=== PATIENT | male | born 1975 | race Caucasian/White ===

== ENCOUNTER 2021-09-06 15:26 | Emergency (ER) | payer BC ==
[2021-09-06 17:24] LABS: Absolute Lymphocytes (CBC) 2.3 K/uL (0.7-4.9); Basophils % 0.9 % (0-1.3); Hematocrit 53.1 % (39.6-49.0); Lymphocytes % 33.2 % (15.3-44.8); MPV 7.4 fL (7.6-11.3); RBC Red Blood Cell Count 5.93 M/uL (4.33-5.43)
[2021-09-06 17:30] LABS: Protime INR 0.95
[2021-09-06 17:44] LABS: ALT/SGPT 37 U/L (12-78); AST/SGOT 13 U/L (15-37); Albumin 4.2 g/dL (3.4-5.0); Alkaline Phosphatase 100 U/L (45-117); BUN Blood Urea Nitrogen 21 mg/dL (7-18); Bicarbonate 25 mmol/L (21-32); Bilirubin Direct 0.1 mg/dL (0-0.2); Bilirubin Total 0.5 mg/dL (0.2-1.0); Glucose Level 135 mg/dL (74-106); Magnesium 2.4 mg/dL (1.8-2.4); NT PRO-BNP 13 pg/mL (<125); Potassium 3.8 mmol/L (3.5-5.1); Sodium Level 140 mmol/L (136-145); Troponin (Emerg Dept Use Only) < 0.02 ng/mL (0.0-0.045)
[2021-09-06] MEDS ORDERED: MECLIZINE HCL 12.5 MG TAB ONE (18:03)
--- NOTE | 2021-09-06 18:41 | RAD REPORT ---
EXAM DESCRIPTION: CT - Head Brain Wo Cont - 09/06/2021 5:57 pm CLINICAL HISTORY: DIZZINESS COMPARISON: <Comparisons> TECHNIQUE: Axial 5 mm thick images of the head were obtained without IV contrast. All CT scans are performed using dose optimization technique as appropriate and may include automated exposure control or mA/KV adjustment according to patient size. FINDINGS: No intracranial hemorrhage, mass, edema or shift of mid-line structures. No acute infarcti on changes seen. No abnormal extra-axial fluid collections. Ventricles are normal. Mastoid air cells and visualized portions of the paranasal sinuses are clear. No acute bony findings. IMPRESSION: Negative non-contrast CT head examination.
--- NOTE | 2021-09-06 18:52 | RAD REPORT ---
EXAM DESCRIPTION: RAD - Chest Single View - 09/06/2021 5:58 pm CLINICAL HISTORY: CHEST PAIN COMPARISON: Two view chest September 2009 TECHNIQUE: AP portable chest image was obtained 09/06/2021 5:58 pm . FINDINGS: Lungs are clear. Heart and vasculature are normal. No measurable pleural effusion and no p neumothorax. No acute bony abnormality seen. No acute aortic findings suspected. IMPRESSION: No acute cardiopulmonary process.
--- NOTE | 2021-09-06 20:04 | ER ---
Nurse's Notes [facility] Name: Ramiro Naylor Age: 45 yrs Sex: Male : 1975 Arrival Date: 09/06/2021 Time: 15:30 Bed Treatment Private MD: Diagnosis: Dizziness and giddiness;Chest Pain Presentation: 09/06 16:03 Chief complaint: Patient states: episodes of dizziness, headache, and right-sided chest aa5 pain that began 1 week ago. 16:03 Acuity: CY 3 aa5 16:03 Coronavirus screen: At this time, the client does not indicate any symptoms associated aa5 with coronavirus-19. Ebola Screen: No symptoms or risks identified at this time. Initial Sepsis Screen: Does the patient meet any 2 criteria? No. Patient's initial sepsis screen is negative. Does the patient have a suspected source of infection? No. Patient's initial sepsis screen is negative. Risk Assessment: Do you want to hurt yourself or someone else? Patient reports no desire to harm self or others. Onset of symptoms was August 2021. 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 - Social history:: Smoking status: Patient reports the use of cigarette tobacco products, smokes one pack cigarettes per day. Screenin:58 Abuse screen: Denies threats or abuse. Denies injuries from another. Nutritional ld1 screening: No deficits noted. Tuberculosis screening: No symptoms or risk factors identified. Fall Risk None identified. Assessment: 16:58 General: Appears in no apparent distress. comfortable, Behavior is calm, cooperative, ld1 appropriate for age. Pain: Complains of pain in anterior aspect of right upper chest Pain does not radiate. Pain currently is 0 out of 10 on a pain scale. at worst was 6 out of 10 on a pain scale. Quality of pain is described as Pain began suddenly, Is intermittent. Neuro: Level of Consciousness is awake, alert, obeys commands, Oriented to person, place, time, situation, Appropriate for age. Cardiovascular: Capillary refill < 3 seconds Patient's skin is warm and dry. Rhythm is regular. Respiratory: Airway is patent Respiratory effort is even, unlabored, Respiratory pattern is regular, symmetrical. GI: Abdomen is round non-distended. : No signs and/or symptoms were reported regarding the genitourinary system. EENT: No signs and/or symptoms were reported regarding the EENT system. Derm: No signs and/or symptoms reported regarding the dermatologic system. Musculoskeletal: Reports pain in chest. 20:00 Reassessment: Patient and/or family updated on plan of care and expected duration. Pain fu level reassessed. Patient is alert, oriented x 3, equal unlabored respirations, skin warm/dry/pink. denies chest pain, dizziness subsided. Vital Signs: 16:03 BP 139 / 96; Pulse 79; Resp 18 S; Temp 97.2(TE); Pulse Ox 100% on R/A; Weight 117.93 kg aa5 (R); Height 6 ft. 2 in. (187.96 cm) (R); 16:58 BP 136 / 94; Pulse 78; Resp 18; Pulse Ox 98% on R/A; Pain 0/10; ld1 18:30 BP 142 / 90; Pulse 82; Resp 18; Pulse Ox 99% on R/A; ld1 16:03 Body Mass Index 33.38 (117.93 kg, 187.96 cm) aa5 ED Course: 15:30 Patient arrived in ED. ds1 16:03 Arm band placed on. aa5 16:07 Triage completed. aa5 16:13 EKG completed in triage. Results shown to MD. aa5 16:57 iGll Mcgrath, RN is Primary Nurse. ld1 16:58 Patient has correct armband on for positive identification. library monitor on. Pulse ld1 ox on. NIBP on. Door closed. Noise minimized. Warm blanket given. 16:58 No provider procedures requiring assistance completed. Patient maintains SpO2 ld1 saturation greater than 95% on room air. 17:07 Ede Mena PA is PHCP. [facility] 17:07 Erickson Patterson MD is Attending Physician. m 17:17 Inserted saline lock: 20 gauge in left hand, using aseptic technique. Blood collected. ld1 17:56 CT Head Brain wo Cont In Process Unspecified. EDMS 17:58 XRAY Chest (1 view) In Process Unspecified. EDMS 20:20 IV discontinued, bleeding controlled, Pressure dressing applied. fu Administered Medications: 18:06 Drug: Meclizine 50 mg Route: PO; ld1 18:06 Follow up: Response: No adverse reaction ld1 Point of Care Testing: Blood Glucose: 16:09 Blood Glucose: 159 mg/dL; aa5 Ranges: Outcome: 20:03 Discharge ordered by . madeleine 20:20 Discharged to home ambulatory, with family. fu 20:20 Condition: good 20:20 Discharge instructions given to patient, Instructed on discharge instructions, follow up and referral plans. Demonstrated understanding of instructions, follow-up care, Prescriptions given X 1. 20:20 Patient left the ED. fu Signatures: Dispatcher [employer] EDMS Ede Mena PA PA jmm Sanford, Demi ds1 Carmita Cochran, RN RN aa5 Juan Luis Armas RN RN fu Gill Mcgrath RN RN ld1
--- NOTE | 2021-09-06 20:04 | EDPHYS ---
Physician Documentation [facility] Name: Ramiro Elder Age: 45 yrs Sex: Male : 1975 Arrival Date: 09/06/2021 Time: 15:30 Bed Treatment Private MD: ED Physician Erickson Patterson HPI: 09/06 17:46 This 45 yrs old Male presents to ER via Ambulatory with complaints of Chest jm Pain, Dizziness. 17:46 The patient or guardian reports chest pain that is located primarily in the substernal [facility] area. Onset: acutely, today. The pain does not radiate. Associated signs and symptoms: Pertinent positives: headache, Pertinent negatives: shortness of breath. This is a 45-year-old male with history of diabetes mellitus, hypertension the presents emerged part with complaints of acute onset dizziness while driving. Patient states this lasted for few minutes. Patient states he soon developed some right-sided chest pain that he described as pressure. This lasted for approximate 5 to 10 minutes. Patient states having a similar episodes of chest pain earlier in the morning.. 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 - Social history:: Smoking status: Patient reports the use of cigarette tobacco products, smokes one pack cigarettes per day. ROS: 17:46 Constitutional: Negative for fever, chills, and weight loss. jmm 17:46 Cardiovascular: Positive for chest pain. 17:46 Neuro: Positive for dizziness. 17:46 All other systems are negative. Exam: 17:46 Constitutional: This is a well developed, well nourished patient who is awake, alert, jmm and in no acute distress. Head/Face: atraumatic. Eyes: EOMI, no conjunctival erythema appreciated ENT: Moist Mucus Membranes Neck: Trachea midline, Supple Chest/axilla: Normal chest wall appearance and motion. Cardiovascular: Regular rate and rhythm. No edema appreciated Respiratory: Normal respirations, no respiratory distress appreciated Abdomen/GI: Non distended, soft Back: Normal ROM 17:46 Skin: Appearance: Color: normal in color. 17:46 Neuro: Orientation: is normal, Mentation: is normal, Memory: is normal, Cerebellar function: normal finger to nose testing. 17:46 Psych: Behavior/mood is pleasant, cooperative. Vital Signs: 16:03 BP 139 / 96; Pulse 79; Resp 18 S; Temp 97.2(TE); Pulse Ox 100% on R/A; Weight 117.93 kg aa5 (R); Height 6 ft. 2 in. (187.96 cm) (R); 16:58 BP 136 / 94; Pulse 78; Resp 18; Pulse Ox 98% on R/A; Pain 0/10; ld1 18:30 BP 142 / 90; Pulse 82; Resp 18; Pulse Ox 99% on R/A; ld1 16:03 Body Mass Index 33.38 (117.93 kg, 187.96 cm) aa5 MDM: 17:45 Patient medically screened. [facility] 20:02 Data reviewed: vital signs, nurses notes. Counseling: I had a detailed discussion with madeleine the patient and/or guardian regarding: the historical points, exam findings, and any diagnostic results supporting the discharge/admit diagnosis, lab results, radiology results, the need for outpatient follow up, to return to the emergency department if symptoms worsen or persist or if there are any questions or concerns that arise at home. ED course: I discussed the patient with Dr. Gardner whom will follow up with the patient tomorrow for reevaluation. Patient understood and agrees with the plan of care. . 09/06 16:21 Order name: Glucose, Ancillary Testing; Complete Time: 17:45 EDVT 09/06 16:58 Order name: Basic Metabolic Panel; Complete Time: 17:45 ld1 09/06 16:58 Order name: CBC with Diff; Complete Time: 17:45 ld1 09/06 16:58 Order name: LFT's; Complete Time: 17:45 ld1 09/06 16:58 Order name: Magnesium; Complete Time: 17:45 ld1 09/06 16:58 Order name: NT PRO-BNP; Complete Time: 17:45 ld1 09/06 16:58 Order name: PT-INR; Complete Time: 17:45 ld1 09/06 16:58 Order name: Troponin (emerg Dept Use Only); Complete Time: 17:45 ld1 09/06 16:58 Order name: XRAY Chest (1 view); Complete Time: 18:54 ld1 09/06 16:58 Order name: EKG; Complete Time: 16:59 ld1 09/06 16:58 Order name: Cardiac monitoring; Complete Time: 16:58 ld1 09/06 16:58 Order name: EKG - Nurse/Tech; Complete Time: 16:58 ld1 09/06 17:49 Order name: CT Head Brain wo Cont; Complete Time: 18:54 [facility] 09/06 16:58 Order name: IV Saline Lock; Complete Time: 17:17 ld1 09/06 16:58 Order name: Labs collected and sent; Complete Time: 17:17 ld1 09/06 16:58 Order name: O2 Per Protocol; Complete Time: 16:58 ld1 09/06 16:58 Order name: O2 Sat Monitoring; Complete Time: 16:58 ld1 Administered Medications: 18:06 Drug: Meclizine 50 mg Route: PO; ld1 18:06 Follow up: Response: No adverse reaction ld1 Point of Care Testing: Blood Glucose: 16:09 Blood Glucose: 159 mg/dL; aa5 Ranges: Critical Glucose Levels:Adult <50 mg/dl or >400 mg/dl <40 mg/dl or >180 mg/dl Disposition Summary: 09/06/21 20:03 Discharge Ordered Location: Home [facility] Condition: Stable [facility] Diagnosis - Dizziness and giddiness jmm - Chest Pain [facility] Followup: jm - With: Private Physician - When: 2 - 3 days - Reason: Recheck today's complaints, Continuance of care, Re-evaluation by your physician Discharge Instructions: - Discharge Summary Sheet jmm - Benign Positional Vertigo jmm - Nonspecific Chest Pain, Adult jmm - Dizziness [facility] Forms: - Medication Reconciliation Form [facility] - Thank You Letter jm - Antibiotic Education jmm - Prescription Opioid Use [facility] Prescriptions: - Meclizine 25 mg Oral Tablet - take 1 tablet by ORAL route every 8 hours As needed; 30 tablet; Refills: 0, [facility] Product Selection Permitted Addendum: 09/09/2021 19:06 Co-signature as Attending Physician, Erickson romero Signatures: Dispatcher [employer] EDErickson Jerome MD MD pkl Mickail, Joel, PA PA jmm Calderon, Audri RN RN aa5 Dibbern, Gill, RN RN ld1
[2021-09-06 21:02] VITALS: TEMP 97.2
[2021-09-06 21:10] VITALS: BP 142/90; O2SAT 99
--- NOTE | 2021-09-07 11:21 | EKG ---
Test Date: 2021-09-06 Test Time: 16:11:38 Title I Instructional Assistant: LL MEASUREMENT RESULTS: Intervals: Rate: 72 CT: 174 QRSD: 94 QT: 382 QTc: 418 [place]: P: 65 CT: 174 QRS: 30 T: 65 INTERPRETIVE STATEMENTS: Normal sinus rhythm Nonspecific ST abnormality Abnormal ECG No previous ECG available for comparison Electronically Signed On 09-07-21 11:20:15 PUBLIC HEALTH DIRECTOR by Gavin Blackburn
== END 2021-09-06 20:20 | disposition home or self-care (01) ==
LOC: ER 15:26
DX: R07.9 Chest pain, unspecified (principal); R42 Dizziness and giddiness; F17.210 Nicotine dependence, cigarettes, uncomplicated
CPT/HCPCS: 36415; 70450; 71045; 80048; 80076; 82947; 83735; 83880; 84484; 85025; 85610; 93005; 99285

== ENCOUNTER 2022-04-11 14:46 | Emergency (ER) | payer BC ==
--- OUTSIDE RECORDS SUMMARY | 2022-04-11 14:49 | XMS REPORT | Continuity of Care Document ---
:1975 Author Organization [facility] Address [address] [place] [address] Dr. Perez [address] [place] [id number] Care Team Providers Name Role Phone SIMONE Attending Clinician Unavailable Payers Payer Name Policy Type Policy Number Effective Date Expiration Date Shanell hanks [employer] [id number] 2019 [facility] 00:00:00 Problems This patient has no known problems. Allergies, Adverse Reactions, Alerts This patient has no known allergies or adverse reactions. Medications This patient has no known medications. Procedures This patient has no known procedures. Encounters Start End Encounter Admission Attending Care Care Encounter Source Date/Time Date/Time Type Type Clinicians Facility Department ID 2022-04-07 Outpatient SIMONE [facility] [id number] [place] 09:42:31 [place] [id number] Health Results This patient has no known results.
[2022-04-11 16:16] LABS: Absolute Lymphocytes (CBC) 2.1 K/uL (0.7-4.9); Hematocrit 49.6 % (39.6-49.0); Lymphocytes % 29.6 % (15.3-44.8); MPV 7.4 fL (7.6-11.3); RBC Red Blood Cell Count 5.59 M/uL (4.33-5.43)
--- NOTE | 2022-04-11 16:40 | RAD REPORT ---
EXAM DESCRIPTION: USExtremity Venous Uni Ltd04/11/2022 4:25 pm CLINICAL HISTORY: left leg pain and swelling. COMPARISON: April 04, 2022 FINDINGS: Left common femoral, superficial femoral,veins are compressible and demonstrate augmentati on. Doppler demonstrates good flow. Echogenic material consistent with thrombus is present within left popliteal vein extending into left posterior tibial vein. Vein is partially compressible Grayscale, color and spectral analysis performed on all vessels IMPRESSION: Acute thrombus within left popliteal and left posterior tibial veins
[2022-04-11 16:47] LABS: ALT/SGPT 28 U/L (12-78); AST/SGOT 20 U/L (15-37); Albumin 3.8 g/dL (3.4-5.0); Alkaline Phosphatase 82 U/L (45-117); BUN Blood Urea Nitrogen 20 mg/dL (7-18); Bicarbonate 23 mmol/L (21-32); Bilirubin Total 0.3 mg/dL (0.2-1.0); Glomerular Filtration Rate 108 ml/min (=/>90); Glucose Level 190 mg/dL (74-106); Magnesium 2.2 mg/dL (1.8-2.4); NT PRO-BNP 66 pg/mL (<125); Potassium 3.9 mmol/L (3.5-5.1); Protein, Total 7.6 g/dL (6.4-8.2); Sodium Level 138 mmol/L (136-145); Troponin High Sensitivity 5.1 pg/mL (<58.9)
[2022-04-11 16:49] LABS: Bilirubin Direct < 0.1 mg/dL (0-0.2)
--- NOTE | 2022-04-11 18:42 | RAD REPORT ---
EXAM DESCRIPTION: US - Lower Extremity Artery Uni Ltd - 04/11/2022 6:18 pm CLINICAL HISTORY: Leg swelling COMPARISON: None FINDINGS: Left common femoral and left superficial femoral arteries demonstrate triphasic waveforms. Flow is not visualized within the left popliteal artery. Minimal flow within the left posterior tibial artery. Grayscale, color and spectral analysis performed on all vessels IMPRESSION: Occlusion of the left popliteal artery
--- NOTE | 2022-04-11 19:07 | ER ---
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 Patient denies trauma to the leg. Patient states he had an ultrasound on the leg last week, which was negative. Patient states he also had an MRI recently and was informed it is possibly a strained muscle. Coronavirus screen: At this time, the client does not indicate any symptoms associated with coronavirus-19. Ebola Screen: No symptoms or risks identified at this time. Initial Sepsis Screen: Does the patient meet any 2 criteria? No. Patient's initial sepsis screen is negative. Does the patient have a suspected source of infection? No. Patient's initial sepsis screen is negative. Risk Assessment: Do you want to hurt yourself or someone else? Patient reports no desire to harm self or others. Onset of symptoms was March 29, 2022. 15:02 Method Of Arrival: Wheelchair ap3 15:02 Acuity: CY 3 ap3 Triage Assessment: 15:07 General: Appears uncomfortable, Behavior is calm, cooperative, appropriate for age. ap3 Pain: Complains of pain in left leg Pain began gradually, over the last few weeks. Neuro: Level of Consciousness is awake, alert, obeys commands, Oriented to person, place, time, situation, Appropriate for age Speech is normal. Cardiovascular: Patient's skin is warm and dry. Respiratory: Airway is patent Respiratory effort is even, unlabored, Respiratory pattern is regular, symmetrical. Derm: Skin is red, on the left lower extrimity. Historical: - Allergies: 15:05 No Known Allergies; ap3 - Home Meds: 15:05 losartan oral [Active]; Synjardy oral [Active]; ap3 - PMHx: 15:05 diabetes mellitus; Hypertensive disorder; seven syndrome; ap3 - Immunization history:: Client reports receiving the 2nd dose of the Covid vaccine. - Social history:: Smoking status: Patient reports the use of cigarette tobacco products, smokes one pack cigarettes per day. Screenin:08 Abuse screen: Denies threats or abuse. Nutritional screening: No deficits noted. ap3 Tuberculosis screening: No symptoms or risk factors identified. 15:30 Fall Risk No fall in past 12 months (0 pts). No secondary diagnosis (0 pts). IV access vg1 (20 points). Ambulatory Aid- None/Bed Rest/Nurse Assist (0 pts). Gait- Impaired (20 pts.). Mental Status- Oriented to own ability (0 pts). Total Stewart Fall Scale indicates Low Risk Score (25-44 pts). Fall prevention measures have been instituted. Side Rails Up X 2 Placed close to Nursing Station Family Present and informed to notify staff if they need to leave bedside As available Patient and Family Educated on Fall Prevention Program and strategies. Assessment: 15:30 General: Appears uncomfortable, Behavior is calm, cooperative. Pain: Complains of pain vg1 in left foot and left leg Pain currently is 10 out of 10 on a pain scale. Pain began x 1 week. Neuro: Haines Agitation-Sedation Scale (RASS): 0 - Alert and Calm Level of Consciousness is awake, alert, obeys commands, Oriented to person, place, time, situation. Cardiovascular: Capillary refill is > 3 seconds in left toes. Respiratory: Airway is patent Respiratory effort is even, unlabored. GI: No signs and/or symptoms were reported involving the gastrointestinal system. : No signs and/or symptoms were reported regarding the genitourinary system. EENT: No signs and/or symptoms were reported regarding the EENT system. Derm: Skin is red, Skin temperature is cold to left lower extremity and left foot; Left big toe appears to be purple in color. Musculoskeletal: Swelling present in left lower extremity and left foot. 16:59 Reassessment: Patient appears in no apparent distress at this time. Patient and/or vg1 family updated on plan of care and expected duration. Pain level reassessed. Patient is alert, oriented x 3, equal unlabored respirations, skin warm/dry/pink. 18:00 Reassessment: Patient appears in no apparent distress at this time. No changes from vg1 previously documented assessment. Patient and/or family updated on plan of care and expected duration. Pain level reassessed. Patient is alert, oriented x 3, equal unlabored respirations, skin warm/dry/pink. 22:19 Reassessment: Patient and/or family updated on plan of care and expected duration. Pain kd3 level reassessed. Patient is alert, oriented x 3, equal unlabored respirations, skin warm/dry/pink. Patient states feeling better. Patient states symptoms have improved. 04/12 01:25 Reassessment: pt heparin drip adjusted per protocol. now running at 34ml/hr 1700 units kd3 per hour. Vital Signs: 04/11 15:02 BP 163 / 95; Pulse 87; Resp 17; Temp 98.2; Pulse Ox 99% ; Weight 117.48 kg; Height 6 ap3 ft. 2 in. (187.96 cm); 16:59 BP 157 / 93; Pulse 73; Resp 16; Pulse Ox 99% ; vg1 17:45 BP 138 / 83; Pulse 79; Resp 16; Pulse Ox 99% on R/A; vg1 22:19 BP 157 / 89; Pulse 71; Resp 20; Pulse Ox 95% on R/A; kd3 23:27 BP 169 / 75; Pulse 76; Resp 18; Pulse Ox 100% on R/A; kd3 04/12 00:21 BP 169 / 75; Pulse 19; Resp 77; Pulse Ox 100% on R/A; kd3 02:55 BP 147 / 80; Pulse 73; Resp 19; Pulse Ox 99% ; kd3 04/11 15:02 Body Mass Index 33.25 (117.48 kg, 187.96 cm) ap3 ED Course: 04/11 14:49 Patient arrived in ED. mr 14:49 Corey Gardner MD is Private Physician. mr 14:52 Fernando Adorno PA is PHCP. cp 14:52 Reynaldo Broderick MD is Attending Physician. cp 15:05 Triage completed. ap3 15:08 Arm band placed on right wrist. ap3 15:26 Coleen Espinal, ASHKAN is Primary Nurse. vg1 15:30 Patient has correct armband on for positive identification. Bed in low position. Call vg1 light in reach. Side rails up X2. Adult w/ patient. 15:30 No provider procedures requiring assistance completed. vg1 15:55 Initial lab(s) drawn, by me, sent to lab. Inserted saline lock: 20 gauge in right vg1 wrist, using aseptic technique. Blood collected. 15:55 First set of blood cultures drawn by me. vg1 16:27 US Extremity Venous Unilateral Ltd In Process Unspecified. EDMS 18:20 US LE Artery Uni Ltd In Process Unspecified. EDMS 18:50 initiated transfer to [facility]. bd 20:24 Inserted saline lock: 20 gauge in left antecubital area, using aseptic technique. vc1 21:24 Pt accepted for transfer by Dr. Ramirez Agrawal. 04/12 03:41 Patient transferred, IV remains in place. kd3 Administered Medications: 04/11 16:25 Drug: morphine 4 mg Route: IVP; Infused Over: 4 mins; Site: right wrist; vg1 16:58 Follow up: Response: No adverse reaction; Marked relief of symptoms vg1 22:21 Follow up: Response: No adverse reaction; Pain is decreased kd3 19:54 Drug: Heparin (DVT/PE- Bolus per protocol) - HEParin 80 units/kg {Co-Signature: lg3 kd3 (Kimberlee Hendricks RN).} Route: IVP; Site: right forearm; 22:21 Follow up: Response: No adverse reaction kd3 19:55 Drug: Heparin (DVT/PE Drip) 18 units/kg/hr - (HEParin 07252 units, D5W 500 ml) kd3 {Co-Signature: lg3 (Kimberlee Hendricks RN).} Route: IV; Rate: calculated rate; Site: right forearm; 22:21 Follow up: IV Status: Infusion continued kd3 20:41 Drug: morphine 4 mg Route: IVP; Infused Over: 4 mins; Site: left antecubital; vc1 22:21 Follow up: Response: No adverse reaction; Pain is decreased kd3 20:41 Drug: Zofran (Ondansetron) 4 mg Route: IVP; Site: left antecubital; vc1 22:20 Follow up: Response: No adverse reaction; Nausea is decreased kd3 21:42 Drug: Dilaudid (HYDROmorphone) 1 mg Route: IVP; Site: left antecubital; kd3 22:20 Follow up: Response: No adverse reaction; Pain is decreased kd3 22:53 Drug: Dilaudid (HYDROmorphone) 0.5 mg Route: IVP; Site: left antecubital; kd3 23:58 Drug: Zofran (Ondansetron) 4 mg Route: IVP; Site: left antecubital; kd3 04/12 00:22 Follow up: Response: No adverse reaction; Nausea is decreased kd3 02:50 CANCELLED (Wrong dosee): Dilaudid (HYDROmorphone) 1 mg IVP in left antecubital once vc1 02:52 Drug: Dilaudid (HYDROmorphone) 0.5 mg Route: IVP; Site: left antecubital; kd3 02:56 Follow up: Response: No adverse reaction; Pain is decreased kd3 Medication: 04/11 22:20 VIS not applicable for this client. kd3 Outcome: 19:06 ER care complete, transfer ordered by MD. morales 04/12 03:41 Transferred by ground EMS kd3 Condition: stable Discharge instructions given to patient. 03:41 Patient left the ED. kd3 Signatures: Dispatcher [employer] EDMS Jenn Hunter, Evonne mr Tila, Fernando, Caty Gordillo cp, RN RN ap3 Coleen Espinal RN RN vg1 Angelica Hamilton Kyli, RN RN kd3 Tameka Salvador RN RN vc1 Kimberlee Hendricks RN lg3 Corrections: (The following items were deleted from the chart) 04/11 16:49 15:30 Derm: Skin is red, Skin temperature is hot to left lower extremity and left foot vg1 vg1 04/12 02:49 04/11 22:53 Dilaudid (HYDROmorphone) 1 mg IVP in left antecubital kd3 vc1 04/12 02:49 04/11 23:27 Response: No adverse reaction; Pain is decreased kd3 vc1
--- NOTE | 2022-04-11 19:07 | EDPHYS ---
Physician Documentation [facility] Name: Ramiro Elder Age: 46 yrs Sex: Male : 1975 Arrival Date: 04/11/2022 Time: 14:49 Bed 19 Private MD: Corey Gardner V ED Physician Reynaldo Broderick HPI: 04/11 15:15 This 46 yrs old Male presents to ER via Wheelchair with complaints of Leg Swelling, Leg cp Pain. 15:15 The patient presents with pain, that is acute, swelling, tenderness, redness. The cp complaints affect the left lower leg. 15:15 Onset: The symptoms/episode began/occurred 2 week(s) ago. cp 15:15 Associated signs and symptoms: Pertinent positives: calf tenderness, swelling, cp tingling, discoloration of right great toe, Pertinent negatives fever, warmth. Treatment prior to arrival includes: no previous treatment. Historical: - Allergies: 15:05 No Known Allergies; ap3 - Home Meds: 15:05 losartan oral [Active]; Synjardy oral [Active]; ap3 - PMHx: 15:05 diabetes mellitus; Hypertensive disorder; seven syndrome; ap3 - Immunization history:: Client reports receiving the 2nd dose of the Covid vaccine. - Social history:: Smoking status: Patient reports the use of cigarette tobacco products, smokes one pack cigarettes per day. ROS: 15:20 Constitutional: Negative for body aches, chills, fever, poor PO intake. cp 15:20 Eyes: Negative for injury, pain, redness, and discharge. cp 15:20 Cardiovascular: Negative for chest pain, palpitations. 15:20 Respiratory: Negative for cough, shortness of breath, wheezing. cp 15:20 Abdomen/GI: Negative for abdominal pain, nausea, vomiting, and diarrhea. cp 15:20 MS/extremity: Positive for pain, paresthesias, swelling, tenderness, of the left foot and left lower leg, Negative for injury or acute deformity. 15:20 Neuro: Negative for altered mental status, dizziness, headache, weakness. 15:20 All other systems are negative. Exam: 15:25 Constitutional: The patient appears in no acute distress, alert, awake, cp non-diaphoretic, non-toxic, well developed, well nourished, overweight 15:25 Head/Face: Normocephalic, atraumatic. cp 15:25 Eyes: Periorbital structures: appear normal, Conjunctiva: normal, no exudate, no injection, Sclera: no appreciated abnormality, Lids and lashes: appear normal, bilaterally. 15:25 ENT: External ear(s): are unremarkable, Nose: is normal, Mouth: Lips: moist, Oral mucosa: pink and intact, moist, Posterior pharynx: is normal, airway is patent, no erythema, no exudate. 15:25 Neck: ROM/movement: is normal, is supple, without pain, no range of motions limitations. 15:25 Chest/axilla: Inspection: normal, Palpation: is normal, no crepitus, no tenderness. 15:25 Cardiovascular: Rate: normal, Rhythm: regular, marked swelling and edema of left lower leg extending to left foot, left dorsalis pedis pulse palpable but weak. left great toe dusky coloration. 15:25 Respiratory: the patient does not display signs of respiratory distress, Respirations: normal, no use of accessory muscles, no retractions, labored breathing, is not present, Breath sounds: are clear throughout, no decreased breath sounds, no stridor, no wheezing. 15:25 Abdomen/GI: Inspection: abdomen appears normal, Palpation: abdomen is soft and non-tender, in all quadrants. 15:25 Back: pain, is absent, ROM is normal. 15:25 Neuro: Orientation: to person, place \\T\\ time. Mentation: is normal, Motor: moves all fours, strength is normal. 16:40 ECG was reviewed by the Attending Physician. cp Vital Signs: 15:02 BP 163 / 95; Pulse 87; Resp 17; Temp 98.2; Pulse Ox 99% ; Weight 117.48 kg; Height 6 ap3 ft. 2 in. (187.96 cm); 16:59 BP 157 / 93; Pulse 73; Resp 16; Pulse Ox 99% ; vg1 17:45 BP 138 / 83; Pulse 79; Resp 16; Pulse Ox 99% on R/A; vg1 22:19 BP 157 / 89; Pulse 71; Resp 20; Pulse Ox 95% on R/A; kd3 23:27 BP 169 / 75; Pulse 76; Resp 18; Pulse Ox 100% on R/A; kd3 04/12 00:21 BP 169 / 75; Pulse 19; Resp 77; Pulse Ox 100% on R/A; kd3 02:55 BP 147 / 80; Pulse 73; Resp 19; Pulse Ox 99% ; kd3 04/11 15:02 Body Mass Index 33.25 (117.48 kg, 187.96 cm) ap3 MDM: 04/11 15:17 Patient medically screened. 17:17 Physician consultation: Corey Gardner MD was called at 17:10, regarding patient's cp condition, left message on voicemail. 19:00 Data reviewed: vital signs, nurses notes, lab test result(s), EKG, radiologic studies, cp plain films, ultrasound. 19:00 Test interpretation: by ED physician or midlevel provider: ECG, plain radiologic cp studies. 21:01 Physician consultation: was contacted at 21:01, regarding regarding transfer, to [facility]. spoke with DR Carlton, vascular surgeon, who will consult on patient and request transfer to hospitalist service. 04/11 15:06 Order name: Basic Metabolic Panel; Complete Time: 16:59 04/11 16:59 Interpretation: Normal except: CL 108; GLUC 190; BUN 20. 04/11 15:06 Order name: CBC with Diff; Complete Time: 16:59 04/11 16:59 Interpretation: Normal except: RBC 5.59; HCT 49.6; MPV 7.4. 04/11 15:06 Order name: LFT's; Complete Time: 16:59 04/11 17:00 Interpretation: Normal except: GLOB 3.8; A/G 1.0. 04/11 15:06 Order name: Magnesium; Complete Time: 16:59 04/11 15:06 Order name: NT PRO-BNP; Complete Time: 16:59 04/11 15:06 Order name: PT-INR; Complete Time: 16:59 04/11 15:06 Order name: Troponin HS; Complete Time: 16:59 04/11 15:07 Order name: Lactate; Complete Time: 16:59 04/11 15:07 Order name: Procalcitonin; Complete Time: 16:59 04/11 15:07 Order name: Blood Culture Adult (2) 04/11 15:24 Order name: US Extremity Venous Unilateral Ltd; Complete Time: 16:59 04/11 17:01 Interpretation: Report reviewed. cp 04/11 17:27 Order name: [employer]; Complete Time: 18:49 cp 04/11 18:31 Order name: COVID-19 SARS RT PCR (Document "Date of Onset" if Symptomatic); Complete cp Time: 21:00 04/11 23:57 Order name: Ptt, Activated kd3 04/11 15:06 Order name: EKG; Complete Time: 15:06 cp 04/11 15:06 Order name: Cardiac monitoring; Complete Time: 16:41 cp 04/11 15:06 Order name: EKG - Nurse/Tech; Complete Time: 16:41 cp 04/11 15:06 Order name: IV Saline Lock; Complete Time: 16:04 cp 04/11 15:06 Order name: Labs collected and sent; Complete Time: 16:04 cp 04/11 15:06 Order name: O2 Per Protocol; Complete Time: 15:41 cp 04/11 15:06 Order name: O2 Sat Monitoring; Complete Time: 15:41 cp EC:40 Rate is 79 beats/min. Rhythm is regular. MD interval is normal. QRS interval is normal. cp QT interval is normal. T waves are Inverted in leads III, aVR. Interpreted by me. Reviewed by me. Administered Medications: 16:25 Drug: morphine 4 mg Route: IVP; Infused Over: 4 mins; Site: right wrist; vg1 16:58 Follow up: Response: No adverse reaction; Marked relief of symptoms vg1 22:21 Follow up: Response: No adverse reaction; Pain is decreased kd3 19:54 Drug: Heparin (DVT/PE- Bolus per protocol) - HEParin 80 units/kg {Co-Signature: lg3 kd3 (Kimberlee Hendricks RN).} Route: IVP; Site: right forearm; 22:21 Follow up: Response: No adverse reaction kd3 19:55 Drug: Heparin (DVT/PE Drip) 18 units/kg/hr - (HEParin 42583 units, D5W 500 ml) kd3 {Co-Signature: lg3 (Kimberlee Hendricks RN).} Route: IV; Rate: calculated rate; Site: right forearm; 22:21 Follow up: IV Status: Infusion continued kd3 20:41 Drug: morphine 4 mg Route: IVP; Infused Over: 4 mins; Site: left antecubital; vc1 22:21 Follow up: Response: No adverse reaction; Pain is decreased kd3 20:41 Drug: Zofran (Ondansetron) 4 mg Route: IVP; Site: left antecubital; vc1 22:20 Follow up: Response: No adverse reaction; Nausea is decreased kd3 21:42 Drug: Dilaudid (HYDROmorphone) 1 mg Route: IVP; Site: left antecubital; kd3 22:20 Follow up: Response: No adverse reaction; Pain is decreased kd3 22:53 Drug: Dilaudid (HYDROmorphone) 0.5 mg Route: IVP; Site: left antecubital; kd3 23:58 Drug: Zofran (Ondansetron) 4 mg Route: IVP; Site: left antecubital; kd3 04/12 00:22 Follow up: Response: No adverse reaction; Nausea is decreased kd3 02:50 CANCELLED (Wrong dosee): Dilaudid (HYDROmorphone) 1 mg IVP in left antecubital once vc1 02:52 Drug: Dilaudid (HYDROmorphone) 0.5 mg Route: IVP; Site: left antecubital; kd3 02:56 Follow up: Response: No adverse reaction; Pain is decreased kd3 Disposition Summary: 04/11/22 19:06 Transfer Ordered Transfer Location: [facility] cp Reason: Higher level of care cp Condition: Stable cp Problem: new cp Symptoms: have improved cp Accepting Physician: DR Agrawal(04/12/22 03:41) kd3 Diagnosis - Left Popliteal Artery Occlusion cp - Acute embolism and thrombosis of deep veins of lower extremity - left cp Forms: - Medication Reconciliation Form cp - SBAR form cp Addendum: 04/15/2022 00:25 Co-signature as Attending Physician, Reynaldo Broderick MD. r n Signatures: Dispatcher [employer] Reynaldo Griggs MD MD rn Page, Corey, PA PA cp Prokisch, Amanda RN RN ap3 Coleen Espinal RN RN vg1 Nani Quach RN RN kd3 Tameka Salvador RN RN vc1 Kimberlee Hendricks RN lg3 Corrections: (The following items were deleted from the chart) 04/11 21:24 19:06 Doctor carmen cp 04/12 02:50 04/11 22:53 Dilaudid (HYDROmorphone) 1 mg IVP in left antecubital once given. kd3 vc1 04/12 02:50 02:49 Dilaudid (HYDROmorphone) 1 mg IVP in left antecubital once ordered. vc1 vc1 03:41 04/11 21:24 DR Agrawal cp kd3
[2022-04-11] MEDS ORDERED: HEPARIN 5000 UNIT/ML 1 ML VIAL ONE (19:36)
[2022-04-11] MEDS ORDERED: HEPARIN/D5W 25,000 UNIT/500 ML BAG IV ONE (19:36)
[2022-04-11] MEDS ORDERED: MORPHINE 4 MG/ML SYR ONE (20:41)
[2022-04-11] MEDS ORDERED: ONDANSETRON 4 MG/2 ML VIAL ONE (20:41)
[2022-04-11] MEDS ORDERED: HYDROMORPHONE HCL 0.5 MG/0.5 ML INJ ONE ×2 (21:44→22:56)
[2022-04-12] MEDS ORDERED: ONDANSETRON 4 MG/2 ML VIAL ONE (00:03)
[2022-04-12 03:56] VITALS: TEMP 98.2
[2022-04-12 04:09] VITALS: BP 147/80; O2SAT 99
--- NOTE | 2022-04-12 08:07 | EKG ---
Test Date: 2022-04-11 Test Time: 16:33:28 Welfare [facility] Manager: CARSON MEASUREMENT RESULTS: Intervals: Rate: 79 IN: 166 QRSD: 94 QT: 374 QTc: 428 [place]: P: 77 IN: 166 QRS: 22 T: 40 INTERPRETIVE STATEMENTS: Normal sinus rhythm Cannot rule out Anterior infarct, age undetermined Abnormal ECG Compared to ECG 09/06/2021 16:11:38 Myocardial infarct finding now present ST (T wave) deviation no longer present Electronically Signed On 04-12-22 08:05:35 CDT by Gavin Blackburn
== END 2022-04-12 03:41 | disposition short-term general hospital (02) ==
LOC: ER 14:46
DX: I82.402 Acute embolism and thrombosis of unspecified deep veins of left lower extremity (principal); I77.1 Stricture of artery; Z20.822 Contact with and (suspected) exposure to COVID-19
CPT/HCPCS: 93005; 87040 ×2; 85025; 80048; 36415; 83735; 85610; 80076; 83605; 85730; 84484; 84145; 83880; 93926; 93971; U0003; J1644 ×2; J1170 ×2; J2405; 99285

== ENCOUNTER 2022-05-08 22:40 | Emergency (ER) | payer BC ==
--- NOTE | 2022-05-09 04:07 | ER ---
Nurse's Notes [facility] Name: Ramiro Naylor Age: 46 yrs Sex: Male : 1975 Arrival Date: 05/08/2022 Time: 22:46 Bed 12 Private MD: Diagnosis: Encounter for adjustment and management of vascular access device-picc Presentation: 05/09 00:49 Chief complaint: Patient states: my PICC line is bleeding. It just started 3 hours ago. kd3 it did it after we did my IV cefepime. i had it placed last Sunday at [facility] in the [facility]. Coronavirus screen: Vaccine status: Patient reports receiving the 2nd dose of the covid vaccine. Ebola Screen: No symptoms or risks identified at this time. Initial Sepsis Screen: Does the patient meet any 2 criteria? No. Patient's initial sepsis screen is negative. Does the patient have a suspected source of infection? No. Patient's initial sepsis screen is negative. Risk Assessment: Do you want to hurt yourself or someone else? Patient reports no desire to harm self or others. Onset of symptoms was May 09, 2022. 00:49 Method Of Arrival: Wheelchair kd3 00:49 Acuity: CY 3 kd3 Triage Assessment: 00:53 General: Appears uncomfortable, Behavior is calm, cooperative. Pain: Complains of pain kd3 in left leg. Historical: - Home Meds: 00:53 Synjardy Oral [Active]; kd3 00:53 bupropion HCl 150 mg Oral Tb24 1 tab once daily [Active]; clopidogrel 75 mg oral tab aa9 [Active]; amitriptyline 25 mg Oral tab [Active]; famotidine 20 mg Oral tab [Active]; carvedilol 12.5 mg oral tab [Active]; magnesium oxide 400 mg (241.3 mg magnesium) Oral tab [Active]; gabapentin 300 mg oral cap [Active]; atorvastatin 20 mg oral tab [Active]; losartan 100 mg oral tab [Active]; Xarelto 15 mg oral tab [Active]; - PMHx: 00:53 diabetes mellitus; Hypertensive disorder; seven syndrome; kd3 - Immunization history:: Adult Immunizations up to date. - Social history:: Smoking status: Patient/guardian denies using tobacco. - Family history:: not pertinent. Screenin:54 Abuse screen: Denies threats or abuse. Denies injuries from another. Nutritional kd3 screening: No deficits noted. Tuberculosis screening: No symptoms or risk factors identified. Fall Risk Gait- Weak (10 pts.). Assessment: 02:37 General: Appears in no apparent distress. uncomfortable, Behavior is calm, cooperative. aa9 General: pt noticed PICC line on the right upper arm was bloody. Denies pain at site. Line placed on SundayMay 03. . Pain: Complains of pain in lateral aspect of left calf. Cardiovascular:. Derm: PICC line dressing is sanguineus saturated. No swelling, pain reported, or redness around the site. Vital Signs: 00:49 BP 138 / 95; Pulse 81; Resp 18; Temp 98.6; Pulse Ox 100% ; Weight 109.32 kg; Height 6 kd3 ft. 2 in. (187.96 cm); Pain 0/10; 02:30 BP 144 / 88; aa9 00:49 Body Mass Index 30.94 (109.32 kg, 187.96 cm) kd3 ED Course: 05/08 22:46 Patient arrived in ED. [id number] 00:53 Triage completed. kd3 00:53 Arm band placed on left wrist. kd3 00:54 Patient has correct armband on for positive identification. kd3 00:55 Bronson Hart, RN is Primary Nurse. as6 01:15 Fernando Vale MD is Attending Physician. rob 04:14 No provider procedures requiring assistance completed. Patient did not have IV access as6 during this emergency room visit. Administered Medications: No medications were administered Medication: 04:14 VIS not applicable for this client. as6 Outcome: 04:06 Discharge ordered by . rob 04:14 Discharged to home ambulatory. as6 04:14 Condition: stable 04:14 Discharge instructions given to patient, Instructed on discharge instructions, follow up and referral plans. Demonstrated understanding of instructions, follow-up care. 04:15 Patient left the ED. as6 Signatures: Fernando Vale MD MD cha Jeffries, Jennifer j6 Bronson Hart RN RN as6 Nani Quach RN RN kd3 Ora Troy RN RN aa9 Corrections: (The following items were deleted from the chart) 00:54 00:49 Chief complaint: Patient states: my PICC line is bleeding. It just started 3 kd3 hours ago. it did it after we did my IV cefepime. kd3 02:34 00:53 Home Meds: losartan Oral; kd3 aa9
--- NOTE | 2022-05-09 04:07 | EDPHYS ---
Physician Documentation [facility] Name: Ramiro Elder Age: 46 yrs Sex: Male : 1975 Arrival Date: 05/08/2022 Time: 22:46 Bed 12 Private MD: VIRGILIO Physician Fernando Vale HPI: 05/09 03:57 This 46 yrs old Male presents to ER via Wheelchair with complaints of PIC rob LINE ISSUE. 03:57 The patient or guardian complains of pain, that is acute. The complaints affect the rob right tricep. Context: The problem was sustained at home, resulted from unknown cause. Onset: The symptoms/episode began/occurred 1 day(s) ago. Treatment prior to arrival includes: no previous treatment. Modifying factors: The symptoms are alleviated by. Associated signs and symptoms: The patient has no apparent associated signs or symptoms. Severity of symptoms: At their worst the symptoms were. The patient has not experienced similar symptoms in the past. Historical: - Home Meds: 00:53 Synjardy Oral [Active]; kd3 00:53 bupropion HCl 150 mg Oral Tb24 1 tab once daily [Active]; clopidogrel 75 mg oral tab aa9 [Active]; amitriptyline 25 mg Oral tab [Active]; famotidine 20 mg Oral tab [Active]; carvedilol 12.5 mg oral tab [Active]; magnesium oxide 400 mg (241.3 mg magnesium) Oral tab [Active]; gabapentin 300 mg oral cap [Active]; atorvastatin 20 mg oral tab [Active]; losartan 100 mg oral tab [Active]; Xarelto 15 mg oral tab [Active]; - PMHx: 00:53 diabetes mellitus; Hypertensive disorder; seven syndrome; kd3 - Immunization history:: Adult Immunizations up to date. - Social history:: Smoking status: Patient/guardian denies using tobacco. - Family history:: not pertinent. ROS: 03:57 Constitutional: Negative for fever, chills, and weight loss, Eyes: Negative for injury, rob pain, redness, and discharge, ENT: Negative for injury, pain, and discharge, Neck: Negative for injury, pain, and swelling, Cardiovascular: Negative for chest pain, palpitations, and edema, Respiratory: Negative for shortness of breath, cough, wheezing, and pleuritic chest pain, Abdomen/GI: Negative for abdominal pain, nausea, vomiting, diarrhea, and constipation, Back: Negative for injury and pain, : Negative for injury, bleeding, discharge, and swelling, Skin: Negative for injury, rash, and discoloration, Neuro: Negative for headache, weakness, numbness, tingling, and seizure, Psych: Negative for depression, anxiety, suicide ideation, homicidal ideation, and hallucinations, Allergy/Immunology: Negative for hives, rash, and allergies, Endocrine: Negative for neck swelling, polydipsia, polyuria, polyphagia, and marked weight changes, Hematologic/Lymphatic: Negative for swollen nodes, abnormal bleeding, and unusual bruising. 03:57 MS/extremity: Positive for BLEEDING AT PICC SITE. Exam: 03:57 Constitutional: This is a well developed, well nourished patient who is awake, alert, rob and in no acute distress. Head/Face: Normocephalic, atraumatic. Eyes: Pupils equal round and reactive to light, extra-ocular motions intact. Lids and lashes normal. Conjunctiva and sclera are non-icteric and not injected. Cornea within normal limits. Periorbital areas with no swelling, redness, or edema. ENT: Nares patent. No nasal discharge, no septal abnormalities noted. Tympanic membranes are normal and external auditory canals are clear. Oropharynx with no redness, swelling, or masses, exudates, or evidence of obstruction, uvula midline. Mucous membranes moist. Neck: Trachea midline, no thyromegaly or masses palpated, and no cervical lymphadenopathy. Supple, full range of motion without nuchal rigidity, or vertebral point tenderness. No Meningismus. Chest/axilla: Normal chest wall appearance and motion. Nontender with no deformity. No lesions are appreciated. Cardiovascular: Regular rate and rhythm with a normal S1 and S2. No gallops, murmurs, or rubs. Normal PMI, no JVD. No pulse deficits. Respiratory: Lungs have equal breath sounds bilaterally, clear to auscultation and percussion. No rales, rhonchi or wheezes noted. No increased work of breathing, no retractions or nasal flaring. Abdomen/GI: Soft, non-tender, with normal bowel sounds. No distension or tympany. No guarding or rebound. No evidence of tenderness throughout. Back: No spinal tenderness. No costovertebral tenderness. Full range of motion. Male : Normal genitalia with no discharge or lesions. Skin: Warm, dry with normal turgor. Normal color with no rashes, no lesions, and no evidence of cellulitis. Neuro: Awake and alert, GCS 15, oriented to person, place, time, and situation. Cranial nerves II-XII grossly intact. Motor strength 5/5 in all extremities. Sensory grossly intact. Cerebellar exam normal. Normal gait. Psych: Awake, alert, with orientation to person, place and time. Behavior, mood, and affect are within normal limits. 03:57 Musculoskeletal/extremity: ROM: no acute changes, intact in all extremities, full active range of motion, full passive range of motion, Circulation is intact in all extremities. Sensation intact. Compartment Syndrome exam of affected extremity: is normal. DVT Exam: No signs of deep vein thrombosis. no pain, no swelling, no tenderness, negative Homans' sign noted on exam, no appreciated bluish discoloration, no erythema, no increased warmth. Vital Signs: 00:49 BP 138 / 95; Pulse 81; Resp 18; Temp 98.6; Pulse Ox 100% ; Weight 109.32 kg; Height 6 kd3 ft. 2 in. (187.96 cm); Pain 0/10; 02:30 BP 144 / 88; aa9 00:49 Body Mass Index 30.94 (109.32 kg, 187.96 cm) kd3 MDM: 01:15 Patient medically screened. rob 04:00 Data reviewed: vital signs, nurses notes. Data interpreted: athletic monitor: rate is 81 rob beats/min, rhythm is regular, Pulse oximetry: on room air is 100 %. Counseling: I had a detailed discussion with the patient and/or guardian regarding: the historical points, exam findings, and any diagnostic results supporting the discharge/admit diagnosis, the need for outpatient follow up, for definitive care, a general surgeon. 05/09 03:57 Order name: Wound dressing; Complete Time: 04:11 rob Administered Medications: No medications were administered Disposition Summary: 05/09/22 04:06 Discharge Ordered Location: Home rob Problem: new rob Symptoms: have improved rob Condition: Stable rob Diagnosis - Encounter for adjustment and management of vascular access device - picc rob Followup: rob - With: Private Physician - When: 2 - 3 days - Reason: Recheck today's complaints, Continuance of care, Re-evaluation by your physician Discharge Instructions: - Discharge Summary Sheet rob - PICC Home Care Guide rob - PICC Insertion, Care After rob - PICC Insertion rob Forms: - Medication Reconciliation Form rob - Thank You Letter rob - Antibiotic Education rob - Prescription Opioid Use rob Signatures: Fernando Vale MD MD cha Doucette, Kyli RN RN kd3 Ora Troy RN RN aa9 Corrections: (The following items were deleted from the chart) 02:34 00:53 Home Meds: losartan Oral; kd3 aa9
[2022-05-09 04:21] VITALS: TEMP 98.6; O2SAT 100
[2022-05-09 04:22] VITALS: BP 144/88
--- OUTSIDE RECORDS SUMMARY | 2022-05-18 00:54 | XMS REPORT | Continuity of Care Document ---
:1975 Author Organization [facility] t Address [address] [place] [address] Care Team Providers Name Role Phone SALLY OLIVEIRA Primary Care Physician Unavailable SIMONE Attending Clinician Unavailable RASHI WARREN Attending Clinician Unavailable ESTUARDO Attending Clinician Unavailable ANASTASIA COELHO Attending Clinician Unavailable Admitting Clinician Unavailable Payers Payer Name Policy Type Policy Number Effective Date Expiration Date S latonya [employer] [id number] 2019 [facility] 00:00:00 PPO/EPO - BCBS [id number] CVCP-BCBS [id number] BCBS PPO POS EPO [id number] 2019 CHOICE 00:00:00 Problems This patient has no known problems. Allergies, Adverse Reactions, Alerts Allergy Allergy Status Severity Reaction(s) Onset Inactive Treating Comm ents Source Name Type Date Date Clinician NO KNOWN Allergy Active [facility] Medications This patient has no known medications. Vital Signs Vital Name Observation Time Observation Value Comments Source WEIGHT 2022-05-03 10:00:00 111.7 kg WEIGHT 2022-04-12 04:55:00 118.389 kg HEIGHT 2022-04-12 04:55:00 188 cm WEIGHT 2022-05-03 10:00:00 111.7 kg WEIGHT 2022-04-12 04:55:00 118.389 kg HEIGHT 2022-04-12 04:55:00 188 cm Procedures This patient has no known procedures. Encounters Start End Encounter Admission Attending Care Care Encounter Source Date/Time Date/Time Type Type Clinicians Facility Department ID 2022-04-12 Outpatient [facility] [id number] [place] 07:34:34 [id number] [facility] 2022-04-07 Outpatient SIMONE, [facility] [id number] [place] 09:42:31 [place] [id number] [facility] 2022-05-15 2022-05-15 Outpatient SHELBY WARREN [facility] [id number] [facility] 13:39:57 13:39:57 [facility] 2022-05-12 2022-05-12 Outpatient [facility] [id number] [facility] 14:25:09 14:25:09 [facility] 2022-04-12 2022-05-03 Inpatient ER NAEEM, [facility] Surgery [id number] [facility] 04:32:00 18:24:00 SHAKILA 2022-04-12 2022-04-12 Outpatient [facility] [id number] [facility] 04:32:00 23:59:00 [facility] 2022-04-12 2022-04-12 Outpatient [facility] [id number] [facility] 04:32:00 04:32:00 [facility] Results Test Description Test Time Test Comments Results Result Comments Source ANAEROBIC CULTURE 2022-05-04 11:03:14 Test Item Value Reference Range Interpretation Comme nts CULTURE ([facility]) (test code = 1095) No anaerobes isolated POCT-GLUCOSE [id number] 12:31:33 Test Item Value Reference Range Interpretation Comments POC-GLUCOSE METER 249 mg/dL 70-110 H : TESTED A T [facility] 67 ([facility]) (test code = INA Woods [facility], 1538) 58768: Automation Qa Tester/Techni jadon ID = [id number] for [place] LLIAMS, TYNEKA POCT-GLUCOSE [id number] 08:35:01 Test Item Value Reference Range Interpretation Comments POC-GLUCOSE METER 351 mg/dL 70-110 H : Notified RN/MD: [facility] (test code = TESTED AT [facility] 6720 1538) [facility] [id number]: Automation Qa Tester/Techni jadon ID = [id number] for [place] LLIAMS, TYNEKA SARS-COV2/RT-PCR ([facility])2022-05-03 05:11:32 Test Item Value Reference Range Interpretation Comments SARS-COV2/RT-PCR Negative Negative The SARS-Co V-2 target (test code = nucleic acids a re not [id number]) detected in thi s specimen. Negative result s do not preclude SARS-C oV-2 infection and s hould not be used as the denice e basis for patient managem ent decisions. Nega tive results must be combine d with clinical observ ations, patient history , and epidemiological information. A false negativ e result may occur if a spec imen is improperly kalpesh ected, transported or handled. This SARS CoV-2 test is a rapid, real-sheri e RT-PCR test intended for th e qualitative detection of nu cleic acid from SARS-CoV-2 in a nasopharyngeal swab specimen collected from individuals suspected of CO VID-19 by their healthcar e provider. This test has been authorized by FDA under an EUA for use by authorized laboratories. This test is only authorized for the duration of the declaration that circumstances exist justifying the authorization of emergency use of in vitro diagnostic tests for detection and/or diagnosis of COVID-19 under Section 564(b)(1) of the Federal Food, Drug and Cosmetic Act, 21 U.S.C. 360bbb- 3(b)(1), unless the authorization is terminated or revoked sooner. Fact Sheet for Healthcare Providers: https://www.[employer]/Documents/Xpert%20Xpress%20SARS%20CoV-2/Fact%20Sheets/3023802%20SARS-COV -2%20HEALTHCARE%20PROVIDERS%20FACT%20SHEET.pdf Fact Sheet for Healthcare Patients: https://www.[employer]/Documents/Xpert %20Xpress%20SARS%20CoV-2/Fact%20Sheets/3023801%53CXJT-CNE-9%20PATIENT%20FACT%20 SHEET.pdfBASIC METABOLIC [id number] 04:54:05 Test Item Value Reference Range Interpretation Comments SODIUM (BEAKER) 136 meq/L 136-145 (test code = 381) POTASSIUM (BEAKER) 4.2 meq/L 3.5-5.1 (test code = 379) CHLORIDE (BEAKER) 101 meq/L 98-107 (test code = 382) CO2 (BEAKER) (test 25 meq/L 22-29 code = 355) BLOOD UREA NITROGEN 22 mg/dL 7-21 H (BEAKER) (test code = 354) CREATININE (BEAKER) 1.04 mg/dL 0.57-1.25 (test code = 358) GLUCOSE RANDOM 238 mg/dL 70-105 H (BEAKER) (test code = 652) CALCIUM (BEAKER) 9.6 mg/dL 8.4-10.2 (test code = 697) EGFR (BEAKER) (test 76 mL/min/1.73 ESTIMA FAY GFR IS code = 1092) sq m NOT ACCURATE CREATININE CLEARANCE IN PREDICTING GLOMERULAR FILTRATION RATE . ESTIMATED GFR I S NOT APPLICABLE FOR DIALYSIS PATIEN TS. Automation Qa Tester ID - PIAYA LCBC (HEMOGRAM ONLY)2022-05-03 04:18:08 Test Item Value Reference Range Interpretation Comments WHITE BLOOD CELL COUNT (BEAKER) 10.4 K/ L 3.5-10.5 (test code = 775) RED BLOOD CELL COUNT (BEAKER) 3.98 M/ L 4.63-6.08 L (test code = 761) HEMOGLOBIN (BEAKER) (test code = 11.8 GM/DL 13.7-17.5 L 410) HEMATOCRIT (BEAKER) (test code = 36.3 % 40.1-51.0 L 411) MEAN CORPUSCULAR VOLUME (BEAKER) 91.2 fL 79.0-92.2 (test code = 753) MEAN CORPUSCULAR HEMOGLOBIN 29.6 pg 25.7-32.2 (BEAKER) (test code = 751) MEAN CORPUSCULAR HEMOGLOBIN CONC 32.5 GM/DL 32.3-36.5 (BEAKER) (test code = 752) RED CELL DISTRIBUTION WIDTH 12.3 % 11.6-14.4 (BEAKER) (test code = 412) PLATELET COUNT (BEAKER) (test 439 K/CU MM 150-450 code = 756) MEAN PLATELET VOLUME (BEAKER) 8.6 fL 9.4-12.4 L (test code = 754) NUCLEATED RED BLOOD CELLS 0 /100 WBC 0-0 (BEAKER) (test code = 413) POCT-GLUCOSE [id number] 21:29:57 Test Item Value Reference Range Interpretation Comments POC-GLUCOSE METER 231 mg/dL 70-110 H : TESTED A T [facility] 6720 (BEAKER) (test code = NIA Woods [facility], 1538) 61942: Automation Qa Tester/Techni jadon ID = [id number] for LETY MOLINA POCT-GLUCOSE [id number] 17:30:58 Test Item Value Reference Range Interpretation Comments POC-GLUCOSE METER 234 mg/dL 70-110 H : TESTED A T [facility] 6720 (BEAKER) (test code = NIA Woods [facility], 1538) 42605: Automation Qa Tester/Techni jadon ID = [id number] for Arpit Marcos RAD, CHEST, 1 VIEW, NON [id number] 16:26:00Reason for exam:->post picc line insertionShould this be performed at the bedside?->Yes [facility] 1975 Sex: MFINAL REPORT TECHNIQUE: Frontal view of the chest. INDICATION: post picc line insertion. COMPARISON: 04/28/2022. FINDINGS: LINES/TUBES: Right PICC line tip directed over the distal SVC. HEART AND MEDIASTINUM: Cardiomediastinal contour is within normal limits. LUNGS: The lungs are well inflated and clear. No consolidation or pulmonary edema. PLEURA: No pneumothorax. No significant pleural effusion. SOFT TISSUES AND BONES: Unremarkable. IMPRESSION:No acute cardiopulmonaryprocess. Right PICC line tip projected over the distal SVC. Signed: Dilia [facility]onatchaug [facility] Verified Date/Time: 05/02/2022 16:26:17 POCT- GLUCOSE [id number] 11:15:56 Test Item Value Reference Range Interpretation Comments POC-GLUCOSE METER 179 mg/dL 70-110 H : TESTED A T [facility] 6720 (BEAKER) (test code = NIA Woods [place], 1538) 456[address]: Automation Qa Tester/Techni jadon ID = [id number] for Arpit Marcos CREATINE KINASE (CK)2022-05-02 10:36:47 Test Item Value Reference Range Interpretation Comments CREATINE KINASE TOTAL (BEAKER) (test 86 U/L 29-200 code = 380) Automation Qa Tester ID - AMI ALBERTO CULTURE + GRAM [id number] 09:20:27 Test Item Value Reference Range Interpretation Comments CULTURE (BEAKER) (test code No growth = 1095) GRAM STAIN RESULT (BEAKER) 1+ WBCs (test code = 1123) GRAM STAIN RESULT (BEAKER) No organisms seen (test code = 03812) POCT-GLUCOSE [id number] 08:30:23 Test Item Value Reference Range Interpretation Comments POC-GLUCOSE METER 143 mg/dL 70-110 H : TESTED A T [facility] 6720 (BEAKER) (test code = [facility], 1538) 64269: Automation Qa Tester/Techni jadon ID = [id number] for STEWART OVERTON BASIC METABOLIC [id number] 05:41:00 Test Item Value Reference Range Interpretation Comments SODIUM (BEAKER) 138 meq/L 136-145 (test code = 381) POTASSIUM (BEAKER) 3.9 meq/L 3.5-5.1 (test code = 379) CHLORIDE (BEAKER) 103 meq/L 98-107 (test code = 382) CO2 (BEAKER) (test 26 meq/L 22-29 code = 355) BLOOD UREA NITROGEN 17 mg/dL 7-21 (BEAKER) (test code = 354) CREATININE (BEAKER) 0.77 mg/dL 0.57-1.25 (test code = 358) GLUCOSE RANDOM 156 mg/dL 70-105 H (BEAKER) (test code = 652) CALCIUM (BEAKER) 9.4 mg/dL 8.4-10.2 (test code = 697) EGFR (BEAKER) (test 108 mL/min/1.73 ESTIM ATED GFR IS code = 1092) sq m NOT ACCURATE CREATININE CLEARANCE IN PREDICTING GLOMERULAR FILTRATION RATE . ESTIMATED GFR I S NOT APPLICABLE FOR DIALYSIS PATIEN TS. Automation Qa Tester ID - PIAYA LCBC (HEMOGRAM ONLY)2022-05-02 05:06:03 Test Item Value Reference Range Interpretation Comments WHITE BLOOD CELL COUNT (BEAKER) 7.5 K/ L 3.5-10.5 (test code = 775) RED BLOOD CELL COUNT (BEAKER) 3.91 M/ L 4.63-6.08 L (test code = 761) HEMOGLOBIN (BEAKER) (test code = 11.5 GM/DL 13.7-17.5 L 410) HEMATOCRIT (BEAKER) (test code = 35.7 % 40.1-51.0 L 411) MEAN CORPUSCULAR VOLUME (BEAKER) 91.3 fL 79.0-92.2 (test code = 753) MEAN CORPUSCULAR HEMOGLOBIN 29.4 pg 25.7-32.2 (BEAKER) (test code = 751) MEAN CORPUSCULAR HEMOGLOBIN CONC 32.2 GM/DL 32.3-36.5 L (BEAKER) (test code = 752) RED CELL DISTRIBUTION WIDTH 12.6 % 11.6-14.4 (BEAKER) (test code = 412) PLATELET COUNT (BEAKER) (test 366 K/CU MM 150-450 code = 756) MEAN PLATELET VOLUME (BEAKER) 8.6 fL 9.4-12.4 L (test code = 754) NUCLEATED RED BLOOD CELLS 0 /100 WBC 0-0 (BEAKER) (test code = 413) POCT-GLUCOSE [id number] 21:13:38 Test Item Value Reference Range Interpretation Comments POC-GLUCOSE METER 263 mg/dL 70-110 H : TESTED A T [facility] 6720 (BEAKER) (test code = [place], 1538) 04645: Automation Qa Tester/Techni jadon ID = [id number] for LETY MOLINA POCT-GLUCOSE [id number] 16:49:01 Test Item Value Reference Range Interpretation Comments POC-GLUCOSE METER 245 mg/dL 70-110 H : TESTED A T [facility] 6720 (BEAKER) (test code = [facility], 1538) 43220: Automation Qa Tester/Techni jadon ID = [id number] for KENNY PARADA POCT-GLUCOSE [id number] 12:13:32 Test Item Value Reference Range Interpretation Comments POC-GLUCOSE METER 269 mg/dL 70-110 H : TESTED A T [facility] 6720 (BEAKER) (test code = [facility], 1538) 52981: Automation Qa Tester/Techni jadon ID = [id number] for KENNY PARADA POCT-GLUCOSE [id number] 08:57:29 Test Item Value Reference Range Interpretation Comments POC-GLUCOSE METER 289 mg/dL 70-110 H : TESTED A T [facility] 6720 (BEAKER) (test code = [facility], 1538) 50623: Automation Qa Tester/Techni jadon ID = [id number] for Shantell Melgar COMPREHENSIVE METABOLIC [id number] 07:02:30 Test Item Value Reference Range Interpretation Comments TOTAL PROTEIN 6.7 gm/dL 6.0-8.3 (BEAKER) (test code = 770) ALBUMIN (BEAKER) 3.1 g/dL 3.5-5.0 L (test code = 1145) ALKALINE PHOSPHATASE 88 U/L 40-150 (BEAKER) (test code = 346) BILIRUBIN TOTAL 0.4 mg/dL 0.2-1.2 (BEAKER) (test code = 377) SODIUM (BEAKER) (test 137 meq/L 136-145 code = 381) POTASSIUM (BEAKER) 4.1 meq/L 3.5-5.1 (test code = 379) CHLORIDE (BEAKER) 103 meq/L 98-107 (test code = 382) CO2 (BEAKER) (test 25 meq/L 22-29 code = 355) BLOOD UREA NITROGEN 16 mg/dL 7-21 (BEAKER) (test code = 354) CREATININE (BEAKER) 0.88 mg/dL 0.57-1.25 (test code = 358) GLUCOSE RANDOM 294 mg/dL 70-105 H (BEAKER) (test code = 652) CALCIUM (BEAKER) 9.4 mg/dL 8.4-10.2 (test code = 697) AST (SGOT) (BEAKER) 29 U/L 5-34 (test code = 353) ALT (SGPT) (BEAKER) 45 U/L 6-55 (test code = 347) EGFR (BEAKER) (test 92 mL/min/1.73 ESTIMA FAY GFR IS code = 1092) sq m NOT ACCURATE CREATININE CLEARANCE IN PREDICTING GLOMERULAR FILTRATION RATE . ESTIMATED GFR I S NOT APPLICABLE FOR DIALYSIS PATIEN TS. Automation Qa Tester ID - PIAYA LCBC (HEMOGRAM ONLY)2022-05-01 06:15:52 Test Item Value Reference Range Interpretation Comments WHITE BLOOD CELL COUNT (BEAKER) 7.7 K/ L 3.5-10.5 (test code = 775) RED BLOOD CELL COUNT (BEAKER) 4.11 M/ L 4.63-6.08 L (test code = 761) HEMOGLOBIN (BEAKER) (test code = 12.2 GM/DL 13.7-17.5 L 410) HEMATOCRIT (BEAKER) (test code = 37.4 % 40.1-51.0 L 411) MEAN CORPUSCULAR VOLUME (BEAKER) 91.0 fL 79.0-92.2 (test code = 753) MEAN CORPUSCULAR HEMOGLOBIN 29.7 pg 25.7-32.2 (BEAKER) (test code = 751) MEAN CORPUSCULAR HEMOGLOBIN CONC 32.6 GM/DL 32.3-36.5 (BEAKER) (test code = 752) RED CELL DISTRIBUTION WIDTH 12.6 % 11.6-14.4 (BEAKER) (test code = 412) PLATELET COUNT (BEAKER) (test 375 K/CU MM 150-450 code = 756) MEAN PLATELET VOLUME (BEAKER) 8.7 fL 9.4-12.4 L (test code = 754) NUCLEATED RED BLOOD CELLS 0 /100 WBC 0-0 (BEAKER) (test code = 413) SPIN/CONCENTRATION [id number] 06:06:53 Test Item Value Reference Range Interpretation Comments CONCENTRATION CHARGED (BEAKER) (test Done code = 2657) BLOOD [id number] 04:00:52 Test Item Value Reference Range Interpretation Comments CULTURE (BEAKER) (test No growth in 5 days code = 1095) BLOOD [id number] 04:00:51 Test Item Value Reference Range Interpretation Comments CULTURE (BEAKER) (test No growth in 5 days code = 1095) POCT-GLUCOSE [id number] 21:15:25 Test Item Value Reference Range Interpretation Comments POC-GLUCOSE METER 211 mg/dL 70-110 H : TESTED A T [facility] 6720 ([facility]) (test code = [facility], 1538) [id number]: Automation Qa Tester/Techni jadon ID = [id number] for DAVID JAQUEZ POCT-GLUCOSE [id number] 17:03:21 Test Item Value Reference Range Interpretation Comments POC-GLUCOSE METER 206 mg/dL 70-110 H : TESTED A T [facility] 6720 ([facility]) (test code = [facility], 1538) 75133: Automation Qa Tester/Techni jadon ID = [id number] for KENNY PARADA POCT-GLUCOSE [id number] 10:46:00 Test Item Value Reference Range Interpretation Comments POC-GLUCOSE METER 232 mg/dL 70-110 H : TESTED A T [facility] 6720 ([facility]) (test code = [facility], 1538) 01867: Automation Qa Tester/Techni jadon ID = [id number] for Alee Loving lt VANCOMYCIN LEVEL, [id number] 07:15:37 Test Item Value Reference Range Interpretation Comments VANCOMYCIN TROUGH ([facility]) (test 10.7 ug/mL 10.0-20.0 code = 522) Automation Qa Tester ID - PIAYA LPOCT-GLUCOSE [id number] 21:25:37 Test Item Value Reference Range Interpretation Comments POC-GLUCOSE METER 241 mg/dL 70-110 H : TESTED A T [facility] 6720 ([facility]) (test code = [facility], [facility]8) 75213: Automation Qa Tester/Techni jadon ID = [id number] for [place] STEWART KEITH RAD, KNEE, 1 OR 2 VIEWS, [id number] 18:24:00Reason for exam:->pain knee [facility]ELIA : 1975 Sex: MFINAL REPORT TECHNIQUE: RAD, KNEE, 1 OR 2 VIEWS, LEFT INDICATION: pain knee. COMPARISON: None. FINDINGS:No acute fracture or dislocation. No knee joint effusion. Surgical skin ramo along the medial aspect of the proximal lower leg with subjacent soft tissue gas. Surgical clips are present within the proximal lower leg. Related degenerative changes within the patellofemoral compartment. IMPRESSION:Soft tissue gas adjacent to surgical skin ramo along the medial aspect of the proximal lower leg, presumably related to recent surgery. No acute osseous abnormality of the left knee. Signed: Dilia Peguero MDReport Verified Date/Time: 04/29/2022 18:24:35 POCT-GLUCOSE METER 2022-04-29 17:04:42 Test Item Value Reference Range Interpretation Comments POC-GLUCOSE METER 315 mg/dL 70-110 H : TESTED A T [facility] 6720 [facility] (test code = [place], 1538) 20922: Automation Qa Tester/Techni jadon ID = [id number] for [facility] CT, EXTREMITY, LOWER, WITH CONTRAST, [id number] 09:26:00Unlisted Reason for Exam - Click Yes and Enter Reason Below->YesUnlisted Reason for Exam->recent bypass procedure, concern for infection at surgical sitePlease specify:->Tibia/Fibula [facility] : 1975 Sex: MFINAL REPORT TECHNIQUE: CT of the left lower extremity WITH intravenous contrast. Dose modulation, iterative reconstruction, and/or weight- based adjustment of the mA/kV was utilized to reduce the radiation dose to as low as reasonably achievable. INDICATION: Lower leg swelling/redness, cellulitis suspectedrecent bypass procedure, concern for infection at surgical site. CO MPARISON: CT from 04/12/2022. FINDINGS: There is been a recent left superficial femoral artery to popliteal bypass graft placement. The popliteal artery is occluded. The graft is patent, and there is astent in the left peroneal tibial artery. The left anterior tibial artery is patent. The left posterior tibial artery is not confidently visualized. A fluid collection in the left medial leg contain some intermixed gas and fluid surrounds the left lower extremity graft. This fluid collection measures 8.7 x 4.6 x 3 cm. This fluid collection is located immediately deep to the skin ramo. There is edema throughout the subcutaneous tissues of the left lower leg. Moderate atherosclerosis of the right popliteal artery. Hardware in the right distal femur. Additional lucency in the right distal femur from prior surgery. The gas in the nondependent portion of the urinary bladder is most likely due to recent instrumentation. IMPRESSION: A left medial lower leg fluid collection measures 8.7 x 4.6 x 3 cm and surrounds a portion of the left superficial femoral arterial to popliteal graft. The history and intermixed gas make this most likely an abscess. Signed: Milagros Gerber MDReport Verified Date/Time: 04/29/2022 09:26:33 Reading Location: [facility] B1 C013Y CT Body Reading Room POCT-GLUCOSE [id number] 08:38:27 Test Item Value Reference Range Interpretation Comments POC-GLUCOSE METER 165 mg/dL 70-110 H : TESTED A T [facility] 6720 (BEAKER) (test code = [place], 1538) 24512: Automation Qa Tester/Techni jadon ID = [id number] for tonyBailey espino BASIC METABOLIC [id number] 07:22:39 Test Item Value Reference Range Interpretation Comments SODIUM (BEAKER) 135 meq/L 136-145 L (test code = 381) POTASSIUM (BEAKER) 3.9 meq/L 3.5-5.1 (test code = 379) CHLORIDE (BEAKER) 101 meq/L 98-107 (test code = 382) CO2 (BEAKER) (test 24 meq/L 22-29 code = 355) BLOOD UREA NITROGEN 14 mg/dL 7-21 (BEAKER) (test code = 354) CREATININE (BEAKER) 0.86 mg/dL 0.57-1.25 (test code = 358) GLUCOSE RANDOM 191 mg/dL 70-105 H (BEAKER) (test code = 652) CALCIUM (BEAKER) 9.2 mg/dL 8.4-10.2 (test code = 697) EGFR (BEAKER) (test 95 mL/min/1.73 ESTIMA FAY GFR IS code = 1092) sq m NOT ACCURATE CREATININE CLEARANCE IN PREDICTING GLOMERULAR FILTRATION RATE . ESTIMATED GFR I S NOT APPLICABLE FOR DIALYSIS PATIEN TS. Automation Qa Tester ID - LEONELA MCBC (HEMOGRAM ONLY)2022-04-29 06:02:36 Test Item Value Reference Range Interpretation Comments WHITE BLOOD CELL COUNT (BEAKER) 10.2 K/ L 3.5-10.5 (test code = 775) RED BLOOD CELL COUNT (BEAKER) 3.79 M/ L 4.63-6.08 L (test code = 761) HEMOGLOBIN (BEAKER) (test code = 11.6 GM/DL 13.7-17.5 L 410) HEMATOCRIT (BEAKER) (test code = 33.7 % 40.1-51.0 L 411) MEAN CORPUSCULAR VOLUME (BEAKER) 88.9 fL 79.0-92.2 (test code = 753) MEAN CORPUSCULAR HEMOGLOBIN 30.6 pg 25.7-32.2 (BEAKER) (test code = 751) MEAN CORPUSCULAR HEMOGLOBIN CONC 34.4 GM/DL 32.3-36.5 (BEAKER) (test code = 752) RED CELL DISTRIBUTION WIDTH 12.4 % 11.6-14.4 (BEAKER) (test code = 412) PLATELET COUNT (BEAKER) (test 300 K/CU MM 150-450 code = 756) MEAN PLATELET VOLUME (BEAKER) 8.8 fL 9.4-12.4 L (test code = 754) NUCLEATED RED BLOOD CELLS 0 /100 WBC 0-0 (BEAKER) (test code = 413) RAD, CHEST, 1 VIEW, NON [id number] 02:04:00Reason for exam:->eval for pnaShould this be performed at the bedside?->Yes [facility] 1975 Sex: MFINAL REPORT History: eval for pna. Comparison: None. Findings: 2 frontal images of the chest are submitted. The cardiomediastinal contours are unremarkable. There is nofocal consolidation, pneumothorax, large pleural effusion or evidence of overt pulmonary edema. There is no acute bony abnormality. Impression: No acute abnormality. Signed: Bette Canchola Verified Date/Time: 04/29/2022 02:04:11 POCT-GLUCOSE [id number] 21:27:31 Test Item Value Reference Range Interpretation Comments POC-GLUCOSE METER 273 mg/dL 70-110 H : TESTED A T [facility] 6720 ([employer]) (test [facility] = [facility]38[facility] 70601: Automation Qa Tester/Techni jadon ID = [id number] for [place] SE POCT-GLUCOSE [id number] 17:38:23 Test Item Value Reference Range Interpretation Comments POC-GLUCOSE METER 221 mg/dL 70-110 H : TESTED A T [facility] 6720 ([employer]) (test code = [facility], 1538) 82681: Automation Qa Tester/Techni jadon ID = [id number] for KENNY PARADA VANCOMYCIN LEVEL, [id number] 13:35:40 Test Item Value Reference Range Interpretation Comments VANCOMYCIN TROUGH (BEAKER) (test 7.7 ug/mL 10.0-20.0 L code = 522) Automation Qa Tester ID - ADMINPOCT-GLUCOSE [id number] 12:06:43 Test Item Value Reference Range Interpretation Comments POC-GLUCOSE METER 230 mg/dL 70-110 H : TESTED A T [facility] 6720 (BEAKER) (test code = [facility], 1538) 30139: Automation Qa Tester/Techni jadon ID = [id number] for Kasi Chaudhry POCT-GLUCOSE [id number] 07:34:36 Test Item Value Reference Range Interpretation Comments POC-GLUCOSE METER 185 mg/dL 70-110 H : TESTED A T [facility] 6720 (BEAKER) (test code = [facility], 1538) 10419: Automation Qa Tester/Techni jadon ID = [id number] for KENNY PARADA CBC (HEMOGRAM ONLY)2022-04-28 06:50:36 Test Item Value Reference Range Interpretation Comments WHITE BLOOD CELL COUNT (BEAKER) 9.8 K/ L 3.5-10.5 (test code = 775) RED BLOOD CELL COUNT (BEAKER) 4.70 M/ L 4.63-6.08 (test code = 761) HEMOGLOBIN (BEAKER) (test code = 14.1 GM/DL 13.7-17.5 410) HEMATOCRIT (BEAKER) (test code = 43.6 % 40.1-51.0 411) MEAN CORPUSCULAR VOLUME (BEAKER) 92.8 fL 79.0-92.2 H (test code = 753) MEAN CORPUSCULAR HEMOGLOBIN 30.0 pg 25.7-32.2 (BEAKER) (test code = 751) MEAN CORPUSCULAR HEMOGLOBIN CONC 32.3 GM/DL 32.3-36.5 (BEAKER) (test code = 752) RED CELL DISTRIBUTION WIDTH 12.5 % 11.6-14.4 (BEAKER) (test code = 412) PLATELET COUNT (BEAKER) (test 246 K/CU MM 150-450 code = 756) MEAN PLATELET VOLUME (BEAKER) 9.5 fL 9.4-12.4 (test code = 754) NUCLEATED RED BLOOD CELLS 0 /100 WBC 0-0 (BEAKER) (test code = 413) BASIC METABOLIC [id number] 06:49:54 Test Item Value Reference Range Interpretation Comments SODIUM (BEAKER) 136 meq/L 136-145 (test code = 381) POTASSIUM (BEAKER) 4.0 meq/L 3.5-5.1 (test code = 379) CHLORIDE (BEAKER) 100 meq/L 98-107 (test code = 382) CO2 (BEAKER) (test 23 meq/L 22-29 code = 355) BLOOD UREA NITROGEN 10 mg/dL 7-21 (BEAKER) (test code = 354) CREATININE (BEAKER) 0.93 mg/dL 0.57-1.25 (test code = 358) GLUCOSE RANDOM 173 mg/dL 70-105 H (BEAKER) (test code = 652) CALCIUM (BEAKER) 10.1 mg/dL 8.4-10.2 (test code = 697) EGFR (BEAKER) (test 87 mL/min/1.73 ESTIMA FAY GFR IS code = 1092) sq m NOT ACCURATE CREATININE CLEARANCE IN PREDICTING GLOMERULAR FILTRATION RATE . ESTIMATED GFR I S NOT APPLICABLE FOR DIALYSIS PATIEN TS. Automation Qa Tester ID - MYRNA GPOCT-GLUCOSE [id number] 21:06:45 Test Item Value Reference Range Interpretation Comments POC-GLUCOSE METER 313 mg/dL 70-110 H : TESTED A T [facility] 6720 (BEAKER) (test code = [facility], 153) [address]: Automation Qa Tester/Techni jadon ID = [id number] for PE WILMER, SANJU POCT-GLUCOSE [id number] 17:04:51 Test Item Value Reference Range Interpretation Comments POC-GLUCOSE METER 262 mg/dL 70-110 H : TESTED A T [facility] 6720 (BEAKER) (test code = [facility], 153) 67[address]: Automation Qa Tester/Techni jadon ID = [id number] for [place] LLIAMS, TYNEKA POCT-GLUCOSE [id number] 12:17:48 Test Item Value Reference Range Interpretation Comments POC-GLUCOSE METER 227 mg/dL 70-110 H : TESTED A T [facility] 6720 (BEAKER) (test code = [place], 1538) [address]: Automation Qa Tester/Techni jadon ID = [id number] for Arpit Marcos POCT-GLUCOSE [id number] 07:42:45 Test Item Value Reference Range Interpretation Comments POC-GLUCOSE METER 178 mg/dL 70-110 H : TESTED A T [facility] 6720 (BEAKER) (test code = NIA [place] [facility], 1538) 514[address]: Automation Qa Tester/Techni jadon ID = [id number] for STEWART OVERTON [id number] 06:22:14 Test Item Value Reference Range Interpretation Comments PARTIAL THROMBOPLASTIN TIME 40.4 seconds 22.5-36.0 H (BEAKER) (test code = 760) COMPREHENSIVE METABOLIC [id number] 06:18:52 Test Item Value Reference Range Interpretation Comments TOTAL PROTEIN 7.5 gm/dL 6.0-8.3 (BEAKER) (test code = 770) ALBUMIN (BEAKER) 3.5 g/dL 3.5-5.0 (test code = 1145) ALKALINE PHOSPHATASE 83 U/L 40-150 (BEAKER) (test code = 346) BILIRUBIN TOTAL 0.5 mg/dL 0.2-1.2 (BEAKER) (test code = 377) SODIUM (BEAKER) (test 134 meq/L 136-145 L code = 381) POTASSIUM (BEAKER) 4.1 meq/L 3.5-5.1 (test code = 379) CHLORIDE (BEAKER) 98 meq/L 98-107 (test code = 382) CO2 (BEAKER) (test 25 meq/L 22-29 code = 355) BLOOD UREA NITROGEN 15 mg/dL 7-21 (BEAKER) (test code = 354) CREATININE (BEAKER) 0.96 mg/dL 0.57-1.25 (test code = 358) GLUCOSE RANDOM 239 mg/dL 70-105 H (BEAKER) (test code = 652) CALCIUM (BEAKER) 9.8 mg/dL 8.4-10.2 (test code = 697) AST (SGOT) (BEAKER) 19 U/L 5-34 (test code = 353) ALT (SGPT) (BEAKER) 23 U/L 6-55 (test code = 347) EGFR (BEAKER) (test 84 mL/min/1.73 ESTIMA FAY GFR IS code = 1092) sq m NOT ACCURATE CREATININE CLEARANCE IN PREDICTING GLOMERULAR FILTRATION RATE . ESTIMATED GFR I S NOT APPLICABLE FOR DIALYSIS PATIEN TS. Automation Qa Tester ID - LEONELA [facility] (HEMOGRAM ONLY)2022-04-27 05:40:52 Test Item Value Reference Range Interpretation Comments WHITE BLOOD CELL COUNT (BEAKER) 9.6 K/ L 3.5-10.5 (test code = 775) RED BLOOD CELL COUNT (BEAKER) 4.14 M/ L 4.63-6.08 L (test code = 761) HEMOGLOBIN (BEAKER) (test code = 12.4 GM/DL 13.7-17.5 L 410) HEMATOCRIT (BEAKER) (test code = 37.7 % 40.1-51.0 L 411) MEAN CORPUSCULAR VOLUME (BEAKER) 91.1 fL 79.0-92.2 (test code = 753) MEAN CORPUSCULAR HEMOGLOBIN 30.0 pg 25.7-32.2 (BEAKER) (test code = 751) MEAN CORPUSCULAR HEMOGLOBIN CONC 32.9 GM/DL 32.3-36.5 (BEAKER) (test code = 752) RED CELL DISTRIBUTION WIDTH 12.6 % 11.6-14.4 (BEAKER) (test code = 412) PLATELET COUNT (BEAKER) (test 277 K/CU MM 150-450 code = 756) MEAN PLATELET VOLUME (BEAKER) 9.3 fL 9.4-12.4 L (test code = 754) NUCLEATED RED BLOOD CELLS 0 /100 WBC 0-0 (BEAKER) (test code = 413) [id number] 00:23:35 Test Item Value Reference Range Interpretation Comments PARTIAL THROMBOPLASTIN TIME 39.5 seconds 22.5-36.0 H (BEAKER) (test code = 760) POCT-GLUCOSE [id number] 21:31:26 Test Item Value Reference Range Interpretation Comments POC-GLUCOSE METER 223 mg/dL 70-110 H : TESTED A T [facility] 6720 (BEAKER) (test code = [place], 1538) 159[address]: Automation Qa Tester/Techni jadon ID = [id number] for PE RALES, SANJU POCT-GLUCOSE [id number] 17:22:57 Test Item Value Reference Range Interpretation Comments POC-GLUCOSE METER 238 mg/dL 70-110 H : TESTED A T [facility] 6720 ([facility]) (test code = [facility], 1538) 436[address]: Automation Qa Tester/Techni jadon ID = [id number] for Shantell Melgar [id number] 17:03:03 Test Item Value Reference Range Interpretation Comments PARTIAL THROMBOPLASTIN TIME 52.0 seconds 22.5-36.0 H ([facility]) (test code = 760) [id number] 15:36:43 Test Item Value Reference Range Interpretation Comments PARTIAL THROMBOPLASTIN TIME 37.7 seconds 22.5-36.0 H ([facility]) (test code = 760) POCT-GLUCOSE [id number] 14:28:10 Test Item Value Reference Range Interpretation Comments POC-GLUCOSE METER 185 mg/dL 70-110 H : Notified RN/MD: ([facility]) (test code = TESTED AT [place] [id number] 1538) [facility], [address]: Automation Qa Tester/Techni jadon ID = [id number] for VIKKI AMEZCUA [id number] 13:57:43 Test Item Value Reference Range Interpretation Comments ACTIVATED CLOTTING TIME 271 sec : 74 -137 seconds, ([facility]) (test code = Baseli ne: TESTED AT 441) [facility] 6720 [facility], [address]: Automation Qa Tester/Techni jadon ID = [id number] for [place] RPIO, ROSLYN POCT-GLUCOSE [id number] 10:23:39 Test Item Value Reference Range Interpretation Comments POC-GLUCOSE METER 269 mg/dL 70-110 H : TESTED A T [facility] 6720 ([facility]) (test code = [facility], 1538) [address]: Automation Qa Tester/Techni jadon ID = [id number] for Shantell Melgar SARS-COV2/RT-PCR ([facility])2022-04-26 07:24:00 Test Item Value Reference Range Interpretation Comments SARS-COV2/RT-PCR Negative Negative The SARS-Co V-2 target (test code = nucleic acids a re not [id number]) detected in thi s specimen. Negative result s do not preclude SARS-C oV-2 infection and s hould not be used as the denice e basis for patient managem ent decisions. Nega tive results must be combine d with clinical observ ations, patient history , and epidemiological information. A false negativ e result may occur if a spec imen is improperly kalpesh ected, transported or handled. This SARS CoV-2 test is a rapid, real-sheri e RT-PCR test intended for th e qualitative detection of nu cleic acid from SARS-CoV-2 in a nasopharyngeal swab specimen collected from individuals suspected of CO VID-19 by [facility]. This test has been authorized by FDA under an EUA for use by authorized laboratories. This test is only authorized for the duration of the declaration that circumstances exist justifying the authorization of emergency use of in vitro diagnostic tests for detection and/or diagnosis of COVID-19 under Section 564(b)(1) of the Federal Food, Drug and Cosmetic Act, 21 U.S.C. 360bbb- 3(b)(1), unless the authorization is terminated or revoked sooner. Fact Sheet for Healthcare Providers: https://www.[employer]/Documents/Xpert%20Xpress%20SARS%20CoV-2/Fact%20Sheets/3023802%20SARS-COV -2%20HEALTHCARE%20PROVIDERS%20FACT%20SHEET.pdf Fact Sheet for Healthcare Patients: https://www.[employer]/Documents/Xpert %20Xpress%20SARS%20CoV-2/Fact%20Sheets/3023801%16RAIR-QDO-2%20PATIENT%20FACT%20 SHEET.pdfURINALYSIS W/ REFLEX URINE [id number] 03:49:29 Test Item Value Reference Range Interpretation Comments COLOR (BEAKER) (test code = 470) Yellow CLARITY (BEAKER) (test code = 469) Clear SPECIFIC GRAVITY UA (BEAKER) (test 1.022 1.001-1.035 code = 468) PH UA (BEAKER) (test code = 467) 7.0 5.0-8.0 PROTEIN UA (BEAKER) (test code = 50 mg/dL Negative A 464) GLUCOSE UA (BEAKER) (test code = 500 mg/dL Negative A 365) KETONES UA (BEAKER) (test code = Negative Negative 371) BILIRUBIN UA (BEAKER) (test code = Negative Negative 462) BLOOD UA (BEAKER) (test code = Moderate Negative A 461) NITRITE UA (BEAKER) (test code = Negative Negative 465) LEUKOCYTE ESTERASE UA (BEAKER) Negative Negative (test code = 466) UROBILINOGEN UA (BEAKER) (test 0.2 mg/dL 0.2-1.0 code = 463) RBC UA (BEAKER) (test code = 519) 6 /HPF WBC UA (BEAKER) (test code = 520) 1 /HPF BACTERIA (BEAKER) (test code = Rare 517) CRYSTALS, URINE (BEAKER) (test None Seen code = 1521) CALCIUM OXALATE CRYSTALS (BEAKER) Occasional (test code = 518) YEAST (BEAKER) (test code = 1585) Few SOURCE(BEAKER) (test code = 2777) Automation Qa Tester ID - [auto]Automation Qa Tester ID - techOperator ID - [auto]Automation Qa Tester ID - tech BASIC METABOLIC [id number] 03:46:29 Test Item Value Reference Range Interpretation Comments SODIUM (BEAKER) 131 meq/L 136-145 L (test code = 381) POTASSIUM (BEAKER) 4.0 meq/L 3.5-5.1 Specimen slightly (test code = 379) hemolyzed CHLORIDE (BEAKER) 97 meq/L 98-107 L (test code = 382) CO2 (BEAKER) (test 23 meq/L 22-29 code = 355) BLOOD UREA NITROGEN 17 mg/dL 7-21 (BEAKER) (test code = 354) CREATININE (BEAKER) 0.94 mg/dL 0.57-1.25 Specimen slightly (test code = 358) hemolyzed GLUCOSE RANDOM 235 mg/dL 70-105 H (BEAKER) (test code = 652) CALCIUM (BEAKER) 9.1 mg/dL 8.4-10.2 (test code = 697) EGFR (BEAKER) (test 86 mL/min/1.73 ESTIMA FAY GFR IS code = 1092) sq m NOT ACCURATE CREATININE CLEARANCE IN PREDICTING GLOMERULAR FILTRATION RATE . ESTIMATED GFR I S NOT APPLICABLE FOR DIALYSIS PATIEN TS. Automation Qa Tester ID - [id number] 03:46:28 Test Item Value Reference Range Interpretation Comments MAGNESIUM (BEAKER) 2.0 mg/dL 1.6-2.6 Specimen slightly (test code = 627) hemolyzed Automation Qa Tester ID - BSPROTHROMBIN TIME/[id number] 02:59:19 Test Item Value Reference Range Interpretation Comments PROTIME (BEAKER) 16.0 seconds 11.9-14.2 H (test code = 759) INR (BEAKER) (test 1.30 See_Comment [Automat ed message] code = 370) The system [employer] generated this result transmitted ref erence range: <=5.90. The reference range was not used to int erpret this result as normal/abnormal . RECOMMENDED COUMADIN/WARFARIN INR THERAPY RANGESSTANDARD DOSE: 2.0 - 3.0 Includes: PROPHYLAXIS forvenous thrombosis, systemic embolization; TREATMENT for venous thrombosis and/or pulmonary embolus.HIGH RISK: Target INR is 2.5-3.5 for patients with mechanical heart valves.CBC W/PLT COUNT & AUTO DIFFERENTIAL 2022-04-26 02:38:57 Test Item Value Reference Range Interpretation Comments WHITE BLOOD CELL COUNT (BEAKER) 10.9 K/ L 3.5-10.5 H (test code = 775) RED BLOOD CELL COUNT (BEAKER) 4.29 M/ L 4.63-6.08 L (test code = 761) HEMOGLOBIN (BEAKER) (test code = 12.9 GM/DL 13.7-17.5 L 410) HEMATOCRIT (BEAKER) (test code = 38.6 % 40.1-51.0 L 411) MEAN CORPUSCULAR VOLUME (BEAKER) 90.0 fL 79.0-92.2 (test code = 753) MEAN CORPUSCULAR HEMOGLOBIN 30.1 pg 25.7-32.2 (BEAKER) (test code = 751) MEAN CORPUSCULAR HEMOGLOBIN CONC 33.4 GM/DL 32.3-36.5 (BEAKER) (test code = 752) RED CELL DISTRIBUTION WIDTH 12.6 % 11.6-14.4 (BEAKER) (test code = 412) PLATELET COUNT (BEAKER) (test 235 K/CU MM 150-450 code = 756) MEAN PLATELET VOLUME (BEAKER) 9.2 fL 9.4-12.4 L (test code = 754) NUCLEATED RED BLOOD CELLS 0 /100 WBC 0-0 (BEAKER) (test code = 413) NEUTROPHILS RELATIVE PERCENT 72 % (BEAKER) (test code = 429) LYMPHOCYTES RELATIVE PERCENT 15 % (BEAKER) (test code = 430) MONOCYTES RELATIVE PERCENT 11 % (BEAKER) (test code = 431) EOSINOPHILS RELATIVE PERCENT 1 % (BEAKER) (test code = 432) BASOPHILS RELATIVE PERCENT 0 % (BEAKER) (test code = 437) NEUTROPHILS ABSOLUTE COUNT 7.91 K/ L 1.78-5.38 H (BEAKER) (test code = 670) LYMPHOCYTES ABSOLUTE COUNT 1.67 K/ L 1.32-3.57 (BEAKER) (test code = 414) MONOCYTES ABSOLUTE COUNT (BEAKER) 1.18 K/ L 0.30-0.82 H (test code = 415) EOSINOPHILS ABSOLUTE COUNT 0.10 K/ L 0.04-0.54 (BEAKER) (test code = 416) BASOPHILS ABSOLUTE COUNT (BEAKER) 0.03 K/ L 0.01-0.08 (test code = 417) IMMATURE GRANULOCYTES-RELATIVE 0 % 0-1 PERCENT (BEAKER) (test code = 2801) POCT-GLUCOSE [id number] 21:16:29 Test Item Value Reference Range Interpretation Comments POC-GLUCOSE METER 239 mg/dL 70-110 H : TESTED A T [facility] 6720 (BEAKER) (test code = [facility], 153) [address]: Automation Qa Tester/Techni jadon ID = [id number] for Flaquita Roberts POCT-GLUCOSE [id number] 17:54:57 Test Item Value Reference Range Interpretation Comments POC-GLUCOSE METER 297 mg/dL 70-110 H : TESTED A T [facility] 6720 (BEAKER) (test code = [facility], 1538) [address]: Automation Qa Tester/Techni jadon ID = [id number] for SA NTOS, CAMILLE BASIC METABOLIC [id number] 12:38:30 Test Item Value Reference Range Interpretation Comments SODIUM (BEAKER) 134 meq/L 136-145 L (test code = 381) POTASSIUM (BEAKER) 3.8 meq/L 3.5-5.1 (test code = 379) CHLORIDE (BEAKER) 98 meq/L 98-107 (test code = 382) CO2 (BEAKER) (test 25 meq/L 22-29 code = 355) BLOOD UREA NITROGEN 12 mg/dL 7-21 (BEAKER) (test code = 354) CREATININE (BEAKER) 0.97 mg/dL 0.57-1.25 (test code = 358) GLUCOSE RANDOM 227 mg/dL 70-105 H (BEAKER) (test code = 652) CALCIUM (BEAKER) 9.8 mg/dL 8.4-10.2 (test code = 697) EGFR (BEAKER) (test 83 mL/min/1.73 ESTIMA FAY GFR IS code = 1092) sq m NOT ACCURATE CREATININE CLEARANCE IN PREDICTING GLOMERULAR FILTRATION RATE . ESTIMATED GFR I S NOT APPLICABLE FOR DIALYSIS PATIEN TS. Automation Qa Tester ID - YARA MPOCT-GLUCOSE [id number] 12:25:49 Test Item Value Reference Range Interpretation Comments POC-GLUCOSE METER 232 mg/dL 70-110 H : TESTED A T [facility] 6720 (BEAKER) (test code = [place], 1538) [address]: Automation Qa Tester/Techni jadon ID = [id number] for CAMILLE LLANOS CBC W/PLT COUNT & AUTO [id number] 12:13:44 Test Item Value Reference Range Interpretation Comments WHITE BLOOD CELL COUNT (BEAKER) 7.5 K/ L 3.5-10.5 (test code = 775) RED BLOOD CELL COUNT (BEAKER) 4.67 M/ L 4.63-6.08 (test code = 761) HEMOGLOBIN (BEAKER) (test code = 13.9 GM/DL 13.7-17.5 410) HEMATOCRIT (BEAKER) (test code = 42.5 % 40.1-51.0 411) MEAN CORPUSCULAR VOLUME (BEAKER) 91.0 fL 79.0-92.2 (test code = 753) MEAN CORPUSCULAR HEMOGLOBIN 29.8 pg 25.7-32.2 (BEAKER) (test code = 751) MEAN CORPUSCULAR HEMOGLOBIN CONC 32.7 GM/DL 32.3-36.5 (BEAKER) (test code = 752) RED CELL DISTRIBUTION WIDTH 12.7 % 11.6-14.4 (BEAKER) (test code = 412) PLATELET COUNT (BEAKER) (test 211 K/CU MM 150-450 code = 756) MEAN PLATELET VOLUME (BEAKER) 9.1 fL 9.4-12.4 L (test code = 754) NUCLEATED RED BLOOD CELLS 0 /100 WBC 0-0 (BEAKER) (test code = 413) NEUTROPHILS RELATIVE PERCENT 73 % (BEAKER) (test code = 429) LYMPHOCYTES RELATIVE PERCENT 14 % (BEAKER) (test code = 430) MONOCYTES RELATIVE PERCENT 12 % (BEAKER) (test code = 431) EOSINOPHILS RELATIVE PERCENT 1 % (BEAKER) (test code = 432) BASOPHILS RELATIVE PERCENT 0 % (BEAKER) (test code = 437) NEUTROPHILS ABSOLUTE COUNT 5.47 K/ L 1.78-5.38 H (BEAKER) (test code = 670) LYMPHOCYTES ABSOLUTE COUNT 1.02 K/ L 1.32-3.57 L (BEAKER) (test code = 414) MONOCYTES ABSOLUTE COUNT (BEAKER) 0.91 K/ L 0.30-0.82 H (test code = 415) EOSINOPHILS ABSOLUTE COUNT 0.09 K/ L 0.04-0.54 (BEAKER) (test code = 416) BASOPHILS ABSOLUTE COUNT (BEAKER) 0.02 K/ L 0.01-0.08 (test code = 417) IMMATURE GRANULOCYTES-RELATIVE 0 % 0-1 PERCENT (BEAKER) (test code = 2801) POCT-GLUCOSE [id number] 11:12:21 Test Item Value Reference Range Interpretation Comments POC-GLUCOSE METER 192 mg/dL 70-110 H : TESTED A T [facility] 6720 (BEAKER) (test code = [facility], 1538) [address]: Automation Qa Tester/Techni jadon ID = [id number] for [place] (contractDawit Briscoe POCT-GLUCOSE [id number] 21:36:05 Test Item Value Reference Range Interpretation Comments POC-GLUCOSE METER 219 mg/dL 70-110 H : TESTED A T [facility] 6720 (BEAKER) (test code = [facility], 1538) [address]: Automation Qa Tester/Techni jadon ID = [id number] for Flaquita Roberts POCT-GLUCOSE [id number] 17:26:29 Test Item Value Reference Range Interpretation Comments POC-GLUCOSE METER 275 mg/dL 70-110 H : TESTED A T [facility] 6720 (BEAKER) (test code = [facility], 1538) [address]: Automation Qa Tester/Techni jadon ID = [id number] for Haresh Olsen POCT-GLUCOSE [id number] 12:28:51 Test Item Value Reference Range Interpretation Comments POC-GLUCOSE METER 243 mg/dL 70-110 H : TESTED A T [facility] 6720 (BEAKER) (test code = [facility], 1538) 39[address]: Automation Qa Tester/Techni jadon ID = [id number] for Haresh Olsen POCT-GLUCOSE [id number] 08:23:07 Test Item Value Reference Range Interpretation Comments POC-GLUCOSE METER 214 mg/dL 70-110 H : TESTED A T [facility] 6720 (BEAKER) (test code = [facility], 1538) [address]: Automation Qa Tester/Techni jadon ID = [id number] for STEWART OVERTON [id number] 05:41:51 Test Item Value Reference Range Interpretation Comments MAGNESIUM (BEAKER) (test code = 1.8 mg/dL 1.6-2.6 627) Automation Qa Tester ID - MYRNA GBASIC METABOLIC [id number] 05:41:50 Test Item Value Reference Range Interpretation Comments SODIUM (BEAKER) 134 meq/L 136-145 L (test code = 381) POTASSIUM (BEAKER) 3.9 meq/L 3.5-5.1 (test code = 379) CHLORIDE (BEAKER) 98 meq/L 98-107 (test code = 382) CO2 (BEAKER) (test 29 meq/L 22-29 code = 355) BLOOD UREA NITROGEN 10 mg/dL 7-21 (BEAKER) (test code = 354) CREATININE (BEAKER) 0.93 mg/dL 0.57-1.25 (test code = 358) GLUCOSE RANDOM 205 mg/dL 70-105 H (BEAKER) (test code = 652) CALCIUM (BEAKER) 9.6 mg/dL 8.4-10.2 (test code = 697) EGFR (BEAKER) (test 87 mL/min/1.73 ESTIMA FAY GFR IS code = 1092) sq m NOT ACCURATE CREATININE CLEARANCE IN PREDICTING GLOMERULAR FILTRATION RATE . ESTIMATED GFR I S NOT APPLICABLE FOR DIALYSIS PATIEN TS. Automation Qa Tester ID - MYRNA [id number] 05:18:03 Test Item Value Reference Range Interpretation Comments PROTIME (BEAKER) (test 16.2 seconds 11.9-14.2 H code = 759) INR (BEAKER) (test 1.32 See_Comment [Automat ed code = 370) message] The sy stem which generated this result transmitted reference range : <=5.90. The reference range was not used to interpret this result as normal/abnormal . PARTIAL THROMBOPLASTIN 38.5 seconds 22.5-36.0 H TIME (BEAKER) (test code = 760) RECOMMENDED COUMADIN/WARFARIN INR THERAPY RANGESSTANDARD DOSE: 2.0 - 3.0 Includes: PROPHYLAXIS forvenous thrombosis, systemic embolization; TREATMENT for venous thrombosis and/or pulmonary embolus.HIGH RISK: Target INR is 2.5-3.5 for patients with mechanical heart valves.CBC (HEMOGRAM ONLY)2022-04-24 05:01:22 Test Item Value Reference Range Interpretation Comments WHITE BLOOD CELL COUNT (BEAKER) 9.7 K/ L 3.5-10.5 (test code = 775) RED BLOOD CELL COUNT (BEAKER) 4.37 M/ L 4.63-6.08 L (test code = 761) HEMOGLOBIN (BEAKER) (test code = 13.2 GM/DL 13.7-17.5 L 410) HEMATOCRIT (BEAKER) (test code = 39.7 % 40.1-51.0 L 411) MEAN CORPUSCULAR VOLUME (BEAKER) 90.8 fL 79.0-92.2 (test code = 753) MEAN CORPUSCULAR HEMOGLOBIN 30.2 pg 25.7-32.2 (BEAKER) (test code = 751) MEAN CORPUSCULAR HEMOGLOBIN CONC 33.2 GM/DL 32.3-36.5 (BEAKER) (test code = 752) RED CELL DISTRIBUTION WIDTH 12.7 % 11.6-14.4 (BEAKER) (test code = 412) PLATELET COUNT (BEAKER) (test 166 K/CU MM 150-450 code = 756) MEAN PLATELET VOLUME (BEAKER) 9.0 fL 9.4-12.4 L (test code = 754) NUCLEATED RED BLOOD CELLS 0 /100 WBC 0-0 (BEAKER) (test code = 413) POCT-GLUCOSE [id number] 21:23:09 Test Item Value Reference Range Interpretation Comments POC-GLUCOSE METER 227 mg/dL 70-110 H : TESTED A T [facility] 6720 (BEAKER) (test code = [facility], 1538) 44[address]: Automation Qa Tester/Techni jadon ID = [id number] for SANJU ROSA POCT-GLUCOSE [id number] 17:43:22 Test Item Value Reference Range Interpretation Comments POC-GLUCOSE METER 191 mg/dL 70-110 H : TESTED A T [facility] 6720 (BEAKER) (test code = [facility], 1538) 1000[address]: Automation Qa Tester/Techni jadon ID = [id number] for [place] LLIAMS, TYNEKA POCT-GLUCOSE [id number] 12:42:47 Test Item Value Reference Range Interpretation Comments POC-GLUCOSE METER 185 mg/dL 70-110 H : TESTED A T [facility] 6720 (BEAKER) (test code = [facility], 1538) 38051: Automation Qa Tester/Techni jadon ID = [id number] for [place] LLIAMS, TYNEKA POCT-GLUCOSE [id number] 08:33:57 Test Item Value Reference Range Interpretation Comments POC-GLUCOSE METER 201 mg/dL 70-110 H : TESTED A T [facility] 6720 (BEAKER) (test code = [facility], 1538) 53571: Automation Qa Tester/Techni jadon ID = [id number] for [place] LLIAMS, TYNEKA [id number] 04:41:45 Test Item Value Reference Range Interpretation Comments PARTIAL THROMBOPLASTIN TIME 38.7 seconds 22.5-36.0 H (BEAKER) (test code = 760) [id number] 04:41:45 Test Item Value Reference Range Interpretation Comments PROTIME (BEAKER) (test 14.1 seconds 11.9-14.2 code = 759) INR (BEAKER) (test 1.11 See_Comment [Automat ed code = 370) message] The sy stem which generated this result transmitted reference range : <=5.90. The reference range was not used to interpret this result as normal/abnormal . PARTIAL THROMBOPLASTIN 38.7 seconds 22.5-36.0 H TIME (BEAKER) (test code = 760) RECOMMENDED COUMADIN/WARFARIN INR THERAPY RANGESSTANDARD DOSE: 2.0 - 3.0 Includes: PROPHYLAXIS forvenous thrombosis, systemic embolization; TREATMENT for venous thrombosis and/or pulmonary embolus.HIGH RISK: Target INR is 2.5-3.5 for patients with mechanical heart valves.BASIC METABOLIC [id number] 04:04:56 Test Item Value Reference Range Interpretation Comments SODIUM (BEAKER) 136 meq/L 136-145 (test code = 381) POTASSIUM (BEAKER) 4.1 meq/L 3.5-5.1 Specimen slightly (test code = 379) hemolyzed CHLORIDE (BEAKER) 101 meq/L 98-107 (test code = 382) CO2 (BEAKER) (test 25 meq/L 22-29 code = 355) BLOOD UREA NITROGEN 12 mg/dL 7-21 (BEAKER) (test code = 354) CREATININE (BEAKER) 0.91 mg/dL 0.57-1.25 Specimen slightly (test code = 358) hemolyzed GLUCOSE RANDOM 162 mg/dL 70-105 H (BEAKER) (test code = 652) CALCIUM (BEAKER) 9.7 mg/dL 8.4-10.2 (test code = 697) EGFR (BEAKER) (test 89 mL/min/1.73 ESTIMA FAY GFR IS code = 1092) sq m NOT ACCURATE CREATININE CLEARANCE IN PREDICTING GLOMERULAR FILTRATION RATE . ESTIMATED GFR I S NOT APPLICABLE FOR DIALYSIS PATIEN TS. Automation Qa Tester ID - MYRNA [id number] 04:04:55 Test Item Value Reference Range Interpretation Comments MAGNESIUM (BEAKER) 2.0 mg/dL 1.6-2.6 Specimen slightly (test code = 627) hemolyzed Automation Qa Tester ID - MYRNA GPOCT-GLUCOSE [id number] 21:38:34 Test Item Value Reference Range Interpretation Comments POC-GLUCOSE METER 184 mg/dL 70-110 H : TESTED A T [facility] 6720 (BEAKER) (test code [facility], = 1538) [id number]: Automation Qa Tester/Techni jadon ID = [id number] for Amie Quiñones [id number] 20:37:25 Test Item Value Reference Range Interpretation Comments PARTIAL THROMBOPLASTIN TIME 42.2 seconds 22.5-36.0 H (BEAKER) (test code = 760) POCT-GLUCOSE [id number] 16:16:15 Test Item Value Reference Range Interpretation Comments POC-GLUCOSE METER 201 mg/dL 70-110 H : TESTED A T [facility] 6720 (BEAKER) (test code = [facility], 1538) [id number]: Automation Qa Tester/Techni jadon ID = [id number] for MATTHIEU NELSON [id number] 13:48:15 Test Item Value Reference Range Interpretation Comments PROTIME (BEAKER) (test 13.8 seconds 11.9-14.2 code = 759) INR (BEAKER) (test 1.08 See_Comment [Automat ed code = 370) message] The sy stem which generated this result transmitted reference range : <=5.90. The reference range was not used to interpret this result as normal/abnormal . PARTIAL THROMBOPLASTIN 32.6 seconds 22.5-36.0 TIME (BEAKER) (test code = 760) RECOMMENDED COUMADIN/WARFARIN INR THERAPY RANGESSTANDARD DOSE: 2.0 - 3.0 Includes: PROPHYLAXIS forvenous thrombosis, systemic embolization; TREATMENT for venous thrombosis and/or pulmonary embolus.HIGH RISK: Target INR is 2.5-3.5 for patients with mechanical heart valves.POCT-GLUCOSE [id number] 11:26:26 Test Item Value Reference Range Interpretation Comments POC-GLUCOSE METER 205 mg/dL 70-110 H : TESTED A T [facility] 6720 (BEAKER) (test code = [facility], 1538) [address]: Automation Qa Tester/Techni jadon ID = [id number] for MATTHIEU NELSON CBC W/PLT COUNT & AUTO [id number] 10:36:14 Test Item Value Reference Range Interpretation Comments WHITE BLOOD CELL COUNT (BEAKER) 7.9 K/ L 3.5-10.5 (test code = 775) RED BLOOD CELL COUNT (BEAKER) 4.59 M/ L 4.63-6.08 L (test code = 761) HEMOGLOBIN (BEAKER) (test code = 13.8 GM/DL 13.7-17.5 410) HEMATOCRIT (BEAKER) (test code = 41.3 % 40.1-51.0 411) MEAN CORPUSCULAR VOLUME (BEAKER) 90.0 fL 79.0-92.2 (test code = 753) MEAN CORPUSCULAR HEMOGLOBIN 30.1 pg 25.7-32.2 (BEAKER) (test code = 751) MEAN CORPUSCULAR HEMOGLOBIN CONC 33.4 GM/DL 32.3-36.5 (BEAKER) (test code = 752) RED CELL DISTRIBUTION WIDTH 12.8 % 11.6-14.4 (BEAKER) (test code = 412) PLATELET COUNT (BEAKER) (test 166 K/CU MM 150-450 code = 756) MEAN PLATELET VOLUME (BEAKER) 9.4 fL 9.4-12.4 (test code = 754) NUCLEATED RED BLOOD CELLS 0 /100 WBC 0-0 (BEAKER) (test code = 413) NEUTROPHILS RELATIVE PERCENT 66 % (BEAKER) (test code = 429) LYMPHOCYTES RELATIVE PERCENT 20 % (BEAKER) (test code = 430) MONOCYTES RELATIVE PERCENT 12 % (BEAKER) (test code = 431) EOSINOPHILS RELATIVE PERCENT 2 % (BEAKER) (test code = 432) BASOPHILS RELATIVE PERCENT 1 % (BEAKER) (test code = 437) NEUTROPHILS ABSOLUTE COUNT 5.18 K/ L 1.78-5.38 (BEAKER) (test code = 670) LYMPHOCYTES ABSOLUTE COUNT 1.55 K/ L 1.32-3.57 (BEAKER) (test code = 414) MONOCYTES ABSOLUTE COUNT (BEAKER) 0.95 K/ L 0.30-0.82 H (test code = 415) EOSINOPHILS ABSOLUTE COUNT 0.13 K/ L 0.04-0.54 (BEAKER) (test code = 416) BASOPHILS ABSOLUTE COUNT (BEAKER) 0.04 K/ L 0.01-0.08 (test code = 417) IMMATURE GRANULOCYTES-RELATIVE 0 % 0-1 PERCENT (BEAKER) (test code = 2801) [id number] 08:36:25 Test Item Value Reference Range Interpretation Comments ACTIVATED CLOTTING TIME 260 sec : 74 -137 seconds, (BEAKER) (test code = [place]: TESTED AT 441) [facility] 67[address] [facility] [place], 770 30: Automation Qa Tester/Techni jadon ID = [id number] for RAGHU WILSON [id number] 08:36:24 Test Item Value Reference Range Interpretation Comments ACTIVATED CLOTTING TIME 266 sec : 74 -137 seconds, (BEAKER) (test code = Baseli ne: TESTED AT 441) [facility] 67[address] [facility], 770 30: Automation Qa Tester/Techni jadon ID = [id number] for RUSTAM SHAQUILLE, RASHIED [id number] 08:36:24 Test Item Value Reference Range Interpretation Comments ACTIVATED CLOTTING TIME 260 sec : 74 -137 seconds, (BEAKER) (test code = Terrencei ne: TESTED AT 441) [facility] 67[address] [facility], 770 30: Automation Qa Tester/Techni jadon ID = [id number] for MO SHAQUILLE, RASHIED POCT-GLUCOSE [id number] 07:31:46 Test Item Value Reference Range Interpretation Comments POC-GLUCOSE METER 166 mg/dL 70-110 H : TESTED A T [facility] 6720 (BEAKER) (test code = [facility], 1538) [address]: Automation Qa Tester/Techni jadon ID = [id number] for MATTHIEU NELSON BASIC METABOLIC [id number] 07:00:12 Test Item Value Reference Range Interpretation Comments SODIUM (BEAKER) 137 meq/L 136-145 (test code = 381) POTASSIUM (BEAKER) 3.9 meq/L 3.5-5.1 (test code = 379) CHLORIDE (BEAKER) 105 meq/L 98-107 (test code = 382) CO2 (BEAKER) (test 26 meq/L 22-29 code = 355) BLOOD UREA NITROGEN 12 mg/dL 7-21 (BEAKER) (test code = 354) CREATININE (BEAKER) 0.83 mg/dL 0.57-1.25 (test code = 358) GLUCOSE RANDOM 154 mg/dL 70-105 H (BEAKER) (test code = 652) CALCIUM (BEAKER) 9.0 mg/dL 8.4-10.2 (test code = 697) EGFR (BEAKER) (test 99 mL/min/1.73 ESTIMA FAY GFR IS code = 1092) sq m NOT ACCURATE CREATININE CLEARANCE IN PREDICTING GLOMERULAR FILTRATION RATE . ESTIMATED GFR I S NOT APPLICABLE FOR DIALYSIS PATIEN TS. Automation Qa Tester ID - LEONELA [id number] 07:00:12 Test Item Value Reference Range Interpretation Comments MAGNESIUM (BEAKER) (test code = 1.7 mg/dL 1.6-2.6 627) Automation Qa Tester ID - LEONELA MPOCT-GLUCOSE [id number] 22:11:57 Test Item Value Reference Range Interpretation Comments POC-GLUCOSE METER 152 mg/dL 70-110 H : TESTED A T [facility]20 (BEAKER) (test code = [facility] [place], 1538) [address]: Automation Qa Tester/Techni jadon ID = [id number] for [place] LACTIC ACID, [id number] 20:15:12 Test Item Value Reference Range Interpretation Comments LACTATE BLOOD ARTERIAL (2) 1.4 mmol/L 0.5-2.2 (BEAKER) (test code = 2874) Automation Qa Tester ID - BSBASIC METABOLIC [id number] 19:58:11 Test Item Value Reference Range Interpretation Comments SODIUM (BEAKER) 137 meq/L 136-145 (test code = 381) POTASSIUM (BEAKER) 4.4 meq/L 3.5-5.1 Specimen slightly (test code = 379) hemolyzed CHLORIDE (BEAKER) 105 meq/L 98-107 (test code = 382) CO2 (BEAKER) (test 22 meq/L 22-29 code = 355) BLOOD UREA NITROGEN 15 mg/dL 7-21 (BEAKER) (test code = 354) CREATININE (BEAKER) 0.90 mg/dL 0.57-1.25 Specimen slightly (test code = 358) hemolyzed GLUCOSE RANDOM 192 mg/dL 70-105 H (BEAKER) (test code = 652) CALCIUM (BEAKER) 8.7 mg/dL 8.4-10.2 (test code = 697) EGFR (BEAKER) (test 90 mL/min/1.73 ESTIMA FAY GFR IS code = 1092) sq m NOT ACCURATE CREATININE CLEARANCE IN PREDICTING GLOMERULAR FILTRATION RATE . ESTIMATED GFR I S NOT APPLICABLE FOR DIALYSIS PATIEN TS. Automation Qa Tester ID - [id number] 19:58:10 Test Item Value Reference Range Interpretation Comments MAGNESIUM (BEAKER) 1.7 mg/dL 1.6-2.6 Specimen slightly (test code = 627) hemolyzed Automation Qa Tester ID - [id number] 19:58:10 Test Item Value Reference Range Interpretation Comments PHOSPHORUS (BEAKER) 4.1 mg/dL 2.3-4.7 Specimen slightly (test code = 604) hemolyzed Automation Qa Tester ID - BSCBC W/PLT COUNT & AUTO [id number] 19:25:44 Test Item Value Reference Range Interpretation Comments WHITE BLOOD CELL COUNT (BEAKER) 9.3 K/ L 3.5-10.5 (test code = 775) RED BLOOD CELL COUNT (BEAKER) 4.48 M/ L 4.63-6.08 L (test code = 761) HEMOGLOBIN (BEAKER) (test code = 13.7 GM/DL 13.7-17.5 410) HEMATOCRIT (BEAKER) (test code = 40.5 % 40.1-51.0 411) MEAN CORPUSCULAR VOLUME (BEAKER) 90.4 fL 79.0-92.2 (test code = 753) MEAN CORPUSCULAR HEMOGLOBIN 30.6 pg 25.7-32.2 (BEAKER) (test code = 751) MEAN CORPUSCULAR HEMOGLOBIN CONC 33.8 GM/DL 32.3-36.5 (BEAKER) (test code = 752) RED CELL DISTRIBUTION WIDTH 12.9 % 11.6-14.4 (BEAKER) (test code = 412) PLATELET COUNT (BEAKER) (test 151 K/CU MM 150-450 code = 756) MEAN PLATELET VOLUME (BEAKER) 9.5 fL 9.4-12.4 (test code = 754) NUCLEATED RED BLOOD CELLS 0 /100 WBC 0-0 (BEAKER) (test code = 413) NEUTROPHILS RELATIVE PERCENT 76 % (BEAKER) (test code = 429) LYMPHOCYTES RELATIVE PERCENT 13 % (BEAKER) (test code = 430) MONOCYTES RELATIVE PERCENT 8 % (BEAKER) (test code = 431) EOSINOPHILS RELATIVE PERCENT 2 % (BEAKER) (test code = 432) BASOPHILS RELATIVE PERCENT 0 % (BEAKER) (test code = 437) NEUTROPHILS ABSOLUTE COUNT 7.09 K/ L 1.78-5.38 H (BEAKER) (test code = 670) LYMPHOCYTES ABSOLUTE COUNT 1.21 K/ L 1.32-3.57 L (BEAKER) (test code = 414) MONOCYTES ABSOLUTE COUNT (BEAKER) 0.78 K/ L 0.30-0.82 (test code = 415) EOSINOPHILS ABSOLUTE COUNT 0.18 K/ L 0.04-0.54 (BEAKER) (test code = 416) BASOPHILS ABSOLUTE COUNT (BEAKER) 0.04 K/ L 0.01-0.08 (test code = 417) IMMATURE GRANULOCYTES-RELATIVE 0 % 0-1 PERCENT (BEAKER) (test code = 2801) BLOOD GAS, [id number] 19:21:33 Test Item Value Reference Range Interpretation Comments PH ARTERIAL (BEAKER) (test code = 7.35 7.35-7.45 383) PCO2 ARTERIAL (BEAKER) (test code 43 mm Hg 35-45 = 384) PO2 ARTERIAL (BEAKER) (test code 203 mm Hg 80-90 H = 385) O2 SATURATION ARTERIAL (BEAKER) 99.3 % 96.0-97.0 H (test code = 386) HCO3 ARTERIAL (BEAKER) (test code 23 mmol/L 21-29 = 388) BASE EXCESS ARTERIAL (BEAKER) -2.4 mmol/L -2.0-3.0 L (test code = 387) PATIENT TEMPERATURE (BEAKER) 37.0 (test code = 1818) FIO2 (BEAKER) (test code = 1819) 44.0 CALCIUM, [id number] 19:21:06 Test Item Value Reference Range Interpretation Comments CALCIUM IONIZED (BEAKER) (test 1.15 mmol/L 1.12-1.27 code = 698) PH, BLOOD (BEAKER) (test code = 7.35 1810) BLOOD GAS, [id number] 17:14:45 Test Item Value Reference Range Interpretation Comments PH ARTERIAL (BEAKER) (test code = 7.37 7.35-7.45 383) PCO2 ARTERIAL (BEAKER) (test code 42 mm Hg 35-45 = 384) PO2 ARTERIAL (BEAKER) (test code 116 mm Hg 80-90 H = 385) O2 SATURATION ARTERIAL (BEAKER) 98.2 % 96.0-97.0 H (test code = 386) HCO3 ARTERIAL (BEAKER) (test code 24 mmol/L -29 = 388) BASE EXCESS ARTERIAL (BEAKER) -1.9 mmol/L -2.0-3.0 (test code = 387) PATIENT TEMPERATURE (BEAKER) 36.4 (test code = 1818) FIO2 (BEAKER) (test code = 1819) 50.0 GLUCOSE-STAT [id number] 17:14:45 Test Item Value Reference Range Interpretation Comments GLUCOSE RANDOM (BEAKER) (test code 186 mg/dL 70-110 H = 652) POTASSIUM-STAT [id number] 17:14:03 Test Item Value Reference Range Interpretation Comments POTASSIUM (BEAKER) (test code = 4.5 meq/L 3.6-5.5 379) HGB/HCT (H&H) - STAT [id number] 17:14:03 Test Item Value Reference Range Interpretation Comments HEMOGLOBIN (BEAKER) (test code = 14.4 GM/DL 13.0-16.8 410) HEMATOCRIT (BEAKER) (test code = 42.0 % 40.0-50.0 411) SODIUM NA-STAT [id number] 17:14:02 Test Item Value Reference Range Interpretation Comments SODIUM (BEAKER) (test code = 381) 135 meq/L 136-145 L GLUCOSE-STAT [id number] 15:13:48 Test Item Value Reference Range Interpretation Comments GLUCOSE RANDOM (BEAKER) (test code 168 mg/dL 70-110 H = 652) BLOOD GAS, [id number] 15:13:47 Test Item Value Reference Range Interpretation Comments PH ARTERIAL (BEAKER) (test code = 7.33 7.35-7.45 L 383) PCO2 ARTERIAL (BEAKER) (test code 49 mm Hg 35-45 H = 384) PO2 ARTERIAL (BEAKER) (test code 113 mm Hg 80-90 H = 385) O2 SATURATION ARTERIAL (BEAKER) 98.0 % 96.0-97.0 H (test code = 386) HCO3 ARTERIAL (BEAKER) (test code 25 mmol/L 21-29 = 388) BASE EXCESS ARTERIAL (BEAKER) -1.8 mmol/L -2.0-3.0 (test code = 387) PATIENT TEMPERATURE (BEAKER) 35.8 (test code = 1818) FIO2 (BEAKER) (test code = 1819) 50.0 POTASSIUM-STAT [id number] 15:12:40 Test Item Value Reference Range Interpretation Comments POTASSIUM (BEAKER) (test code = 4.3 meq/L 3.6-5.5 379) HGB/HCT (H&H) - STAT [id number] 15:12:40 Test Item Value Reference Range Interpretation Comments HEMOGLOBIN (BEAKER) (test code = 15.3 GM/DL 13.0-16.8 410) HEMATOCRIT (BEAKER) (test code = 45.0 % 40.0-50.0 411) SODIUM NA-STAT [id number] 15:12:39 Test Item Value Reference Range Interpretation Comments SODIUM (BEAKER) (test code = 381) 136 meq/L 136-145 POCT-GLUCOSE [id number] 12:17:22 Test Item Value Reference Range Interpretation Comments POC-GLUCOSE METER 223 mg/dL 70-110 H : TESTED A T [facility] 6720 (BEAKER) (test code = [facility], 1538) [address]: Automation Qa Tester/Techni jadon ID = [id number] for DA VIS, KEYAIRA POCT-GLUCOSE [id number] 06:47:18 Test Item Value Reference Range Interpretation Comments POC-GLUCOSE METER 261 mg/dL 70-110 H : TESTED A T [facility] 6720 (BEAKER) (test code = [facility], 1538) [address]: Automation Qa Tester/Techni jadon ID = [id number] for ON UOHA, IVANA BASIC METABOLIC [id number] 05:12:10 Test Item Value Reference Range Interpretation Comments SODIUM (BEAKER) 137 meq/L 136-145 (test code = 381) POTASSIUM (BEAKER) 4.0 meq/L 3.5-5.1 Specimen slightly (test code = 379) hemolyzed CHLORIDE (BEAKER) 102 meq/L 98-107 (test code = 382) CO2 (BEAKER) (test 26 meq/L 22-29 code = 355) BLOOD UREA NITROGEN 17 mg/dL 7-21 (BEAKER) (test code = 354) CREATININE (BEAKER) 0.88 mg/dL 0.57-1.25 Specimen slightly (test code = 358) hemolyzed GLUCOSE RANDOM 233 mg/dL 70-105 H (BEAKER) (test code = 652) CALCIUM (BEAKER) 9.3 mg/dL 8.4-10.2 (test code = 697) EGFR (BEAKER) (test 92 mL/min/1.73 ESTIMA FAY GFR IS code = 1092) sq m NOT ACCURATE CREATININE CLEARANCE IN PREDICTING GLOMERULAR FILTRATION RATE . ESTIMATED GFR I S NOT APPLICABLE FOR DIALYSIS PATIEN TS. Automation Qa Tester ID - STEPHANIE [id number] 05:12:09 Test Item Value Reference Range Interpretation Comments MAGNESIUM (BEAKER) 1.8 mg/dL 1.6-2.6 Specimen slightly (test code = 627) hemolyzed Automation Qa Tester ID - STEPHANIE [id number] 05:03:02 Test Item Value Reference Range Interpretation Comments PARTIAL THROMBOPLASTIN TIME 82.4 seconds 22.5-36.0 H (BEAKER) (test code = 760) CBC (HEMOGRAM ONLY)2022-04-21 04:47:51 Test Item Value Reference Range Interpretation Comments WHITE BLOOD CELL COUNT (BEAKER) 6.8 K/ L 3.5-10.5 (test code = 775) RED BLOOD CELL COUNT (BEAKER) 5.17 M/ L 4.63-6.08 (test code = 761) HEMOGLOBIN (BEAKER) (test code = 15.4 GM/DL 13.7-17.5 410) HEMATOCRIT (BEAKER) (test code = 46.5 % 40.1-51.0 411) MEAN CORPUSCULAR VOLUME (BEAKER) 89.9 fL 79.0-92.2 (test code = 753) MEAN CORPUSCULAR HEMOGLOBIN 29.8 pg 25.7-32.2 (BEAKER) (test code = 751) MEAN CORPUSCULAR HEMOGLOBIN CONC 33.1 GM/DL 32.3-36.5 (BEAKER) (test code = 752) RED CELL DISTRIBUTION WIDTH 12.7 % 11.6-14.4 (BEAKER) (test code = 412) PLATELET COUNT (BEAKER) (test 201 K/CU MM 150-450 code = 756) MEAN PLATELET VOLUME (BEAKER) 9.4 fL 9.4-12.4 (test code = 754) NUCLEATED RED BLOOD CELLS 0 /100 WBC 0-0 (BEAKER) (test code = 413) POCT-GLUCOSE [id number] 22:57:02 Test Item Value Reference Range Interpretation Comments POC-GLUCOSE METER 204 mg/dL 70-110 H : TESTED A T [facility] 6720 (BEAKER) (test code = [facility] [place], 1538) [address]: Automation Qa Tester/Techni jadon ID = [id number] for ON UOHA, IVANA POCT-GLUCOSE [id number] 16:06:03 Test Item Value Reference Range Interpretation Comments POC-GLUCOSE METER 155 mg/dL 70-110 H : TESTED A T [facility] 6720 (BEAKER) (test code = [facility], 1538) [address]: Automation Qa Tester/Techni jadon ID = [id number] for KENDRICK SLAUGHTER POCT-GLUCOSE [id number] 11:50:11 Test Item Value Reference Range Interpretation Comments POC-GLUCOSE METER 293 mg/dL 70-110 H : TESTED A T [facility] 6720 (BEAKER) (test code = [facility], 1538) 312[address]: Automation Qa Tester/Techni jadon ID = [id number] for JUNIOR SLAUGHTERYL POCT-GLUCOSE [id number] 06:34:51 Test Item Value Reference Range Interpretation Comments POC-GLUCOSE METER 279 mg/dL 70-110 H : TESTED A T [facility] 6720 (BEAKER) (test code = [facility], 1538) 98[address]: Automation Qa Tester/Techni jadon ID = [id number] for GR AHAM, ARNOLD BASIC METABOLIC [id number] 06:32:36 Test Item Value Reference Range Interpretation Comments SODIUM (BEAKER) 136 meq/L 136-145 (test code = 381) POTASSIUM (BEAKER) 3.8 meq/L 3.5-5.1 (test code = 379) CHLORIDE (BEAKER) 100 meq/L 98-107 (test code = 382) CO2 (BEAKER) (test 26 meq/L 22-29 code = 355) BLOOD UREA NITROGEN 12 mg/dL 7-21 (BEAKER) (test code = 354) CREATININE (BEAKER) 1.02 mg/dL 0.57-1.25 (test code = 358) GLUCOSE RANDOM 326 mg/dL 70-105 H (BEAKER) (test code = 652) CALCIUM (BEAKER) 9.3 mg/dL 8.4-10.2 (test code = 697) EGFR (BEAKER) (test 78 mL/min/1.73 ESTIMA FAY GFR IS code = 1092) sq m NOT ACCURATE CREATININE CLEARANCE IN PREDICTING GLOMERULAR FILTRATION RATE . ESTIMATED GFR I S NOT APPLICABLE FOR DIALYSIS PATIEN TS. Automation Qa Tester ID - AMI [id number] 06:32:36 Test Item Value Reference Range Interpretation Comments MAGNESIUM (BEAKER) (test code = 1.8 mg/dL 1.6-2.6 627) Automation Qa Tester ID - AMI [id number] 06:20:09 Test Item Value Reference Range Interpretation Comments PARTIAL THROMBOPLASTIN TIME 82.2 seconds 22.5-36.0 H (BEAKER) (test code = 760) POCT-GLUCOSE [id number] 21:18:00 Test Item Value Reference Range Interpretation Comments POC-GLUCOSE METER 291 mg/dL 70-110 H : TESTED A T [facility] 6720 (BEAKER) (test code = [facility], 1538) [address]: Automation Qa Tester/Techni jadon ID = [id number] for ARNOLD INGRAM POCT-GLUCOSE [id number] 16:22:20 Test Item Value Reference Range Interpretation Comments POC-GLUCOSE METER 233 mg/dL 70-110 H : TESTED A T [facility] 6720 (BEAKER) (test code = [facility], 1538) [address]996: Automation Qa Tester/Techni jadon ID = [id number] for Leona Arias SARS-COV2/RT-PCR ([facility])2022-04-19 16:17:46 Test Item Value Reference Range Interpretation Comments SARS-COV2/RT-PCR (test Negative Not Detected, Negative, code = 3532202) See external report for linked test SARS-COV-2 PERFORMING LAB [facility] (test code = 5174663) Negative result for this test determines that SARS-CoV-2 RNA was not present in the specimen above the Limit of Detection (LOD). However, Negative results do not preclude SARS-CoV-2 infection and should not be used as the sole basis for treatment or patient management decisions. Negative results mustbe combined with clinical observations, patient history, and epidemiological information. A false negative result may occur if a specimen is improperly collected, transported or handled. A false negative result should be considered if patient's recent exposures or clinical presentation indicate that COVID-19 (SARS-CoV-2) is likely and diagnostic tests for other causes of illness are negative. Re-testing should be considered in cases of suspected false negatives.The limit of detection for this assay is 800 copies/mL.This SARS CoV-2 test is a real-time RT-PCR test intended for the qualitative detection of nucleic acid from SARS-CoV-2 in a nasopharyngeal swab specimen collected from individuals susp ected of COVID-19 by their healthcare provider.This test has not been Food and Drug Administration (FDA) cleared or approved. This is a modified version of an approved Emergency Use Authorization (EUA) and is in the process of review by the FDA. Once authorized by the FDA, the issued EUA will be effective until the declaration that circumstances exist justifying the authorization of the emergency use of in vitro diagnostic tests for detection and/or diagnosis of COVID-19 is terminated under Section 564(b)(2) of the Act or the EUA is revoked under Section 564(g) of the Act.Fact Sheet for Healthcare Providers:https://www.[employer]/sites/default/files/product/documents/Fact_Shee z_HS_Xyreluswl_Ccct_GHDQ-EmB-4.pdfFact Sheet for Healthcare Patients:https://www.[employer]/sites/default/files/product/ documents/Umfg_Sezex_Nqczahmq_Uucc_WKAO-NeG-8.pdfPerforming Laboratory:[facility] [place] [id number], [place] [address]FBCF-NGGUPEZ METER 2022-04-19 11:56:11 Test Item Value Reference Range Interpretation Comments POC-GLUCOSE METER 188 mg/dL 70-110 H : TESTED A T [facility] 6720 (BEAKER) (test code = [facility], 1538) 27[address]: Automation Qa Tester/Techni jadon ID = [id number] for Leona Arias [id number] 06:47:58 Test Item Value Reference Range Interpretation Comments MAGNESIUM (BEAKER) 1.9 mg/dL 1.6-2.6 Specimen slightly (test code = 627) hemolyzed Automation Qa Tester ID - STEPHANIE WBASIC METABOLIC [id number] 06:47:58 Test Item Value Reference Range Interpretation Comments SODIUM (BEAKER) 136 meq/L 136-145 (test code = 381) POTASSIUM (BEAKER) 4.0 meq/L 3.5-5.1 Specimen slightly (test code = 379) hemolyzed CHLORIDE (BEAKER) 101 meq/L 98-107 (test code = 382) CO2 (BEAKER) (test 26 meq/L 22-29 code = 355) BLOOD UREA NITROGEN 13 mg/dL 7-21 (BEAKER) (test code = 354) CREATININE (BEAKER) 0.91 mg/dL 0.57-1.25 Specimen slightly (test code = 358) hemolyzed GLUCOSE RANDOM 295 mg/dL 70-105 H (BEAKER) (test code = 652) CALCIUM (BEAKER) 9.3 mg/dL 8.4-10.2 (test code = 697) EGFR (BEAKER) (test 89 mL/min/1.73 ESTIMA FAY GFR IS code = 1092) sq m NOT ACCURATE CREATININE CLEARANCE IN PREDICTING GLOMERULAR FILTRATION RATE . ESTIMATED GFR I S NOT APPLICABLE FOR DIALYSIS PATIEN TS. Automation Qa Tester ID - STEPHANIE [id number] 06:44:59 Test Item Value Reference Range Interpretation Comments PARTIAL THROMBOPLASTIN TIME 87.9 seconds 22.5-36.0 H (BEAKER) (test code = 760) POCT-GLUCOSE [id number] 06:41:43 Test Item Value Reference Range Interpretation Comments POC-GLUCOSE METER 288 mg/dL 70-110 H : TESTED A T [facility] 6720 ([employer]) (test code = [facility], 1538) [address]: Automation Qa Tester/Techni jadon ID = [id number] for ENIO CALVILLO [id number] 22:07:20 Test Item Value Reference Range Interpretation Comments PARTIAL THROMBOPLASTIN TIME 87.4 seconds 22.5-36.0 H (BEAKER) (test code = 760) POCT-GLUCOSE [id number] 21:40:49 Test Item Value Reference Range Interpretation Comments POC-GLUCOSE METER 204 mg/dL 70-110 H : TESTED A T [facility] 6720 ([employer]) (test code = [facility], 1538) 78089: Automation Qa Tester/Techni jadon ID = [id number] for ENIO CALVILLO POCT-GLUCOSE [id number] 16:33:55 Test Item Value Reference Range Interpretation Comments POC-GLUCOSE METER 198 mg/dL 70-110 H : TESTED A T [facility] 6720 (BEAKER) (test code = [facility], 1538) 265[address]: Automation Qa Tester/Techni jadon ID = [id number] for KENDRICK SLAUGHTER [id number] 14:03:18 Test Item Value Reference Range Interpretation Comments PARTIAL THROMBOPLASTIN TIME 93.6 seconds 22.5-36.0 H (BEAKER) (test code = 760) BASIC METABOLIC [id number] 07:13:05 Test Item Value Reference Range Interpretation Comments SODIUM (BEAKER) 138 meq/L 136-145 (test code = 381) POTASSIUM (BEAKER) 3.9 meq/L 3.5-5.1 (test code = 379) CHLORIDE (BEAKER) 102 meq/L 98-107 (test code = 382) CO2 (BEAKER) (test 26 meq/L 22-29 code = 355) BLOOD UREA NITROGEN 16 mg/dL 7-21 (BEAKER) (test code = 354) CREATININE (BEAKER) 0.86 mg/dL 0.57-1.25 (test code = 358) GLUCOSE RANDOM 222 mg/dL 70-105 H (BEAKER) (test code = 652) CALCIUM (BEAKER) 9.3 mg/dL 8.4-10.2 (test code = 697) EGFR (BEAKER) (test 95 mL/min/1.73 ESTIMA FAY GFR IS code = 1092) sq m NOT ACCURATE CREATININE CLEARANCE IN PREDICTING GLOMERULAR FILTRATION RATE . ESTIMATED GFR I S NOT APPLICABLE FOR DIALYSIS PATIEN TS. Automation Qa Tester ID Cesar BROWN [id number] 07:13:05 Test Item Value Reference Range Interpretation Comments MAGNESIUM (BEAKER) (test code = 1.8 mg/dL 1.6-2.6 627) Automation Qa Tester ID - STEPHANIE [id number] 07:03:01 Test Item Value Reference Range Interpretation Comments PARTIAL THROMBOPLASTIN TIME 62.1 seconds 22.5-36.0 H (BEAKER) (test code = 760) CBC (HEMOGRAM ONLY)2022-04-18 06:52:36 Test Item Value Reference Range Interpretation Comments WHITE BLOOD CELL COUNT (BEAKER) 6.2 K/ L 3.5-10.5 (test code = 775) RED BLOOD CELL COUNT (BEAKER) 5.11 M/ L 4.63-6.08 (test code = 761) HEMOGLOBIN (BEAKER) (test code = 15.2 GM/DL 13.7-17.5 410) HEMATOCRIT (BEAKER) (test code = 46.4 % 40.1-51.0 411) MEAN CORPUSCULAR VOLUME (BEAKER) 90.8 fL 79.0-92.2 (test code = 753) MEAN CORPUSCULAR HEMOGLOBIN 29.7 pg 25.7-32.2 (BEAKER) (test code = 751) MEAN CORPUSCULAR HEMOGLOBIN CONC 32.8 GM/DL 32.3-36.5 (BEAKER) (test code = 752) RED CELL DISTRIBUTION WIDTH 12.9 % 11.6-14.4 (BEAKER) (test code = 412) PLATELET COUNT (BEAKER) (test 177 K/CU MM 150-450 code = 756) MEAN PLATELET VOLUME (BEAKER) 9.5 fL 9.4-12.4 (test code = 754) NUCLEATED RED BLOOD CELLS 0 /100 WBC 0-0 (BEAKER) (test code = 413) POCT-GLUCOSE [id number] 06:45:39 Test Item Value Reference Range Interpretation Comments POC-GLUCOSE METER 244 mg/dL 70-110 H : TESTED A T [facility] 6720 ([facility]) (test code = [facility], 1538) [id number]: Automation Qa Tester/Techni jadon ID = [id number] for ENIO CALVILLO POCT-GLUCOSE [id number] 21:23:38 Test Item Value Reference Range Interpretation Comments POC-GLUCOSE METER 242 mg/dL 70-110 H : TESTED A T [facility] 6720 ([facility]) (test code = [facility], 1538) [id number]: Automation Qa Tester/Techni jadon ID = [id number] for ENIO CALVILLO [id number] 19:16:51 Test Item Value Reference Range Interpretation Comments PARTIAL THROMBOPLASTIN TIME 74.4 seconds 22.5-36.0 H (AKER) (test code = 760) PET/CT, CARDIAC PERF REST AND [id number] 17:59:00Reason for exam:- >perioperative risk assessment [facility] DISTRICTName: KIERSTEN SMITH : 1975 Sex: MFINAL REPORT PROCEDURE: MYOCARDIAL PERFUSION PET/CT IMAGING (Rest/Stress)CPT CODE: 44633 INDICATION: Preoperative risk stratification for vascular surgery CARDIOVASCULAR PROFILE:CAD History: NoneRisk Factors: Tobacco use, diabetes, hypertension, obesity, PADBMI: 33.5Medications: Amlodipine, aspirin, atorvastatin, carvedilol, losartan, heparin STRESS PROTOCOL:Pharmacologic stress was achieved with a 10-second intravenous infusion of regadenoson 0.4 mg. The radiopharmaceutical was administered 30 seconds after the start of the regadenoson infusion. IMAGING PROTOCOL:Limited low-dose CT imaging was performed for attenuation correction. 35.6 mCi of Rb-82 chloride was injected intravenously at rest, and gated PET images were obtained. Then, 35.6 mCi of Rb-82 chloride was injected intravenously at peak stress, and gated PET images were obtained. Image quality is good. RESTFINDINGS:HR: 68/minBP: 134/71 mmHgPrelim. EKG: Normal sinus rhythm.Perfusion: Normal.Wall Motion: Normal (LVEF 57%).LV Volume: Normal. STRESS FINDINGS:HR: 81/min (47% of MPHR)BP: 146/8 mmHgPrelim. EKG:No ischemic changes.Symptoms: None (treatment not required).Perfusion: Normal.Wall Motion: Normal (LVEF 65%).LV Volume: Not significantly changed from rest. IMPRESSION:1. Normal study.2. Normal myocardial perfusion. 3. Normal resting LVEF, which augments with pharmacologic stress.4. Normal extracardiac tracer distribution.5. There is no prior study for comparison. Signed: Roberto Zhang [facility] Verified Date/Time: 04/17/2022 17:59:34 [id number] 12:34:52 Test Item Value Reference Range Interpretation Comments PARTIAL THROMBOPLASTIN TIME 84.9 seconds 22.5-36.0 H (BEAKER) (test code = 760) POCT-GLUCOSE [id number] 12:09:10 Test Item Value Reference Range Interpretation Comments POC-GLUCOSE METER 246 mg/dL 70-110 H : TESTED A T [facility] 6720 (BEAKER) (test code = [facility], 1538) 21020: Automation Qa Tester/Techni jadon ID = [id number] for KENDRICK SLAUGHTER LIPID [id number] 10:09:42 Test Item Value Reference Range Interpretation Comments TRIGLYCERIDES (BEAKER) (test code = 158 mg/dL 540) CHOLESTEROL (BEAKER) (test code = 121 mg/dL 631) HDL CHOLESTEROL (BEAKER) (test code 34 mg/dL = 976) LDL CHOLESTEROL CALCULATED (BEAKER) 55 mg/dL (test code = 633) Triglyceride Reference Range: Low Risk <150 Borderline 150-199 High Risk 200-499 Very High Risk >=500Cholesterol Reference Range: Low Risk <200 Borderline 200-239 High Risk >240HDL Cholesterol Reference Range: Low Risk >=60 High Risk <40LDL Cholesterol Reference Range: Optimal <100 Near Optimal 100-129 Borderline 130-159 High 160-189 Very High >=190 Automation Qa Tester ID - DBPOCT-GLUCOSE [id number] 06:50:02 Test Item Value Reference Range Interpretation Comments POC-GLUCOSE METER 292 mg/dL 70-110 H : TESTED A T [facility] 6720 (BEAKER) (test code = [facility], 1538) 95718: Automation Qa Tester/Techni jadon ID = [id number] for ARNOLD INGRAM [id number] 05:19:59 Test Item Value Reference Range Interpretation Comments PARTIAL THROMBOPLASTIN TIME 105.9 seconds 22.5-36.0 H (BEAKER) (test code = 760) BASIC METABOLIC [id number] 05:07:02 Test Item Value Reference Range Interpretation Comments SODIUM (BEAKER) 134 meq/L 136-145 L (test code = 381) POTASSIUM (BEAKER) 3.9 meq/L 3.5-5.1 (test code = 379) CHLORIDE (BEAKER) 98 meq/L 98-107 (test code = 382) CO2 (BEAKER) (test 26 meq/L 22-29 code = 355) BLOOD UREA NITROGEN 19 mg/dL 7-21 (BEAKER) (test code = 354) CREATININE (BEAKER) 1.02 mg/dL 0.57-1.25 (test code = 358) GLUCOSE RANDOM 297 mg/dL 70-105 H (BEAKER) (test code = 652) CALCIUM (BEAKER) 9.0 mg/dL 8.4-10.2 (test code = 697) EGFR (BEAKER) (test 78 mL/min/1.73 ESTIMA FAY GFR IS code = 1092) sq m NOT ACCURATE CREATININE CLEARANCE IN PREDICTING GLOMERULAR FILTRATION RATE . ESTIMATED GFR I S NOT APPLICABLE FOR DIALYSIS PATIEN TS. Automation Qa Tester ID - [id number] 05:07:02 Test Item Value Reference Range Interpretation Comments MAGNESIUM (BEAKER) (test code = 1.8 mg/dL 1.6-2.6 627) Automation Qa Tester ID - DBPOCT-GLUCOSE [id number] 21:48:20 Test Item Value Reference Range Interpretation Comments POC-GLUCOSE METER 252 mg/dL 70-110 H : TESTED A T [facility] 6720 ([employer]) (test code = [facility], 153) 35428: Automation Qa Tester/Techni jadon ID = [id number] for GR AHAM, ARNOLD POCT-GLUCOSE [id number] 16:29:49 Test Item Value Reference Range Interpretation Comments POC-GLUCOSE METER 148 mg/dL 70-110 H : TESTED A T [facility] 6720 (BEAKER) (test code = [facility], 1538) 23186: Automation Qa Tester/Techni jadon ID = [id number] for Al nuha, [place] POCT-GLUCOSE [id number] 12:11:52 Test Item Value Reference Range Interpretation Comments POC-GLUCOSE METER 216 mg/dL 70-110 H : TESTED A T [facility] 6720 ([employer]) (test code = [facility], 1538) 98115: Automation Qa Tester/Techni jadon ID = [id number] for Al nuha, [place] [id number] 08:07:05 Test Item Value Reference Range Interpretation Comments PARTIAL THROMBOPLASTIN TIME 91.0 seconds 22.5-36.0 H (BEAKER) (test code = 760) [id number] 07:35:59 Test Item Value Reference Range Interpretation Comments MAGNESIUM (BEAKER) (test code = 2.0 mg/dL 1.6-2.6 627) Automation Qa Tester ID - DBBASIC METABOLIC [id number] 07:35:58 Test Item Value Reference Range Interpretation Comments SODIUM (BEAKER) 136 meq/L 136-145 (test code = 381) POTASSIUM (BEAKER) 4.6 meq/L 3.5-5.1 (test code = 379) CHLORIDE (BEAKER) 102 meq/L 98-107 (test code = 382) CO2 (BEAKER) (test 25 meq/L 22-29 code = 355) BLOOD UREA NITROGEN 10 mg/dL 7-21 (BEAKER) (test code = 354) CREATININE (BEAKER) 0.89 mg/dL 0.57-1.25 (test code = 358) GLUCOSE RANDOM 248 mg/dL 70-105 H (BEAKER) (test code = 652) CALCIUM (BEAKER) 9.6 mg/dL 8.4-10.2 (test code = 697) EGFR (BEAKER) (test 91 mL/min/1.73 ESTIMA FAY GFR IS code = 1092) sq m NOT ACCURATE CREATININE CLEARANCE IN PREDICTING GLOMERULAR FILTRATION RATE . ESTIMATED GFR I S NOT APPLICABLE FOR DIALYSIS PATIEN TS. Automation Qa Tester ID - DBPOCT-GLUCOSE [id number] 07:31:47 Test Item Value Reference Range Interpretation Comments POC-GLUCOSE METER 243 mg/dL 70-110 H : TESTED A T [facility] 6720 (BEAKER) (test code = [place] [place], 1538) 18215: Automation Qa Tester/Techni jadon ID = [id number] for ARNOLD INGRAM [id number] 07:06:01 Test Item Value Reference Range Interpretation Comments PARTIAL THROMBOPLASTIN TIME 101.8 seconds 22.5-36.0 H (BEAKER) (test code = 760) POCT-GLUCOSE [id number] 22:26:28 Test Item Value Reference Range Interpretation Comments POC-GLUCOSE METER 221 mg/dL 70-110 H : TESTED A T [facility] 6720 (BEAKER) (test code = [facility], 1538) 93860: Automation Qa Tester/Techni jadon ID = [id number] for GR JUANA ARNOLD POCT-GLUCOSE [id number] 16:53:42 Test Item Value Reference Range Interpretation Comments POC-GLUCOSE METER 186 mg/dL 70-110 H : TESTED A T [facility] 6720 (BEAKER) (test code = [facility], 1538) 25242: Automation Qa Tester/Techni jadon ID = [id number] for Al nuha, [place] POCT-GLUCOSE [id number] 12:04:54 Test Item Value Reference Range Interpretation Comments POC-GLUCOSE METER 196 mg/dL 70-110 H : TESTED A T [facility] 6720 (BEAKER) (test code = [facility], 1538) 76091: Automation Qa Tester/Techni jadon ID = [id number] for Al nuha, [place] [id number] 07:31:14 Test Item Value Reference Range Interpretation Comments PARTIAL THROMBOPLASTIN TIME 92.2 seconds 22.5-36.0 H (BEAKER) (test code = 760) POCT-GLUCOSE [id number] 07:28:05 Test Item Value Reference Range Interpretation Comments POC-GLUCOSE METER 210 mg/dL 70-110 H : TESTED A T [facility] 6720 (BEAKER) (test code = [facility], 153) 81150: Automation Qa Tester/Techni jadon ID = [id number] for GR AHAM, ARNOLD BASIC METABOLIC [id number] 05:50:42 Test Item Value Reference Range Interpretation Comments SODIUM (BEAKER) 137 meq/L 136-145 (test code = 381) POTASSIUM (BEAKER) 4.1 meq/L 3.5-5.1 (test code = 379) CHLORIDE (BEAKER) 106 meq/L 98-107 (test code = 382) CO2 (BEAKER) (test 24 meq/L 22-29 code = 355) BLOOD UREA NITROGEN 12 mg/dL 7-21 (BEAKER) (test code = 354) CREATININE (BEAKER) 0.65 mg/dL 0.57-1.25 (test code = 358) GLUCOSE RANDOM 205 mg/dL 70-105 H (BEAKER) (test code = 652) CALCIUM (BEAKER) 8.4 mg/dL 8.4-10.2 (test code = 697) EGFR (BEAKER) (test 131 mL/min/1.73 ESTIM ATED GFR IS code = 1092) sq m NOT ACCURATE CREATININE CLEARANCE IN PREDICTING GLOMERULAR FILTRATION RATE . ESTIMATED GFR I S NOT APPLICABLE FOR DIALYSIS PATIEN TS. Automation Qa Tester ID - LEONELA [id number] 05:50:42 Test Item Value Reference Range Interpretation Comments MAGNESIUM (BEAKER) (test code = 1.5 mg/dL 1.6-2.6 L 627) Automation Qa Tester ID - LEONELA [facility] (HEMOGRAM ONLY)2022-04-15 05:26:35 Test Item Value Reference Range Interpretation Comments WHITE BLOOD CELL COUNT (BEAKER) 5.5 K/ L 3.5-10.5 (test code = 775) RED BLOOD CELL COUNT (BEAKER) 4.73 M/ L 4.63-6.08 (test code = 761) HEMOGLOBIN (BEAKER) (test code = 14.1 GM/DL 13.7-17.5 410) HEMATOCRIT (BEAKER) (test code = 42.8 % 40.1-51.0 411) MEAN CORPUSCULAR VOLUME (BEAKER) 90.5 fL 79.0-92.2 (test code = 753) MEAN CORPUSCULAR HEMOGLOBIN 29.8 pg 25.7-32.2 (BEAKER) (test code = 751) MEAN CORPUSCULAR HEMOGLOBIN CONC 32.9 GM/DL 32.3-36.5 (BEAKER) (test code = 752) RED CELL DISTRIBUTION WIDTH 12.8 % 11.6-14.4 (BEAKER) (test code = 412) PLATELET COUNT (BEAKER) (test 151 K/CU MM 150-450 code = 756) MEAN PLATELET VOLUME (BEAKER) 9.2 fL 9.4-12.4 L (test code = 754) NUCLEATED RED BLOOD CELLS 0 /100 WBC 0-0 (BEAKER) (test code = 413) [id number] 01:21:03 Test Item Value Reference Range Interpretation Comments PARTIAL THROMBOPLASTIN TIME 95.8 seconds 22.5-36.0 H (BEAKER) (test code = 760) POCT-GLUCOSE [id number] 21:25:51 Test Item Value Reference Range Interpretation Comments POC-GLUCOSE METER 327 mg/dL 70-110 H : TESTED A T [facility] 6720 ([facility]) (test code = [facility], 1538) 42236: Automation Qa Tester/Techni jadon ID = [id number] for ARNOLD INGRAM [id number] 18:01:37 Test Item Value Reference Range Interpretation Comments PARTIAL THROMBOPLASTIN TIME 47.0 seconds 22.5-36.0 H ([facility]) (test code = 760) POCT-GLUCOSE [id number] 16:49:53 Test Item Value Reference Range Interpretation Comments POC-GLUCOSE METER 270 mg/dL 70-110 H : TESTED A T [facility] 6720 ([facility]) (test code = [facility], 1538) 38548: Automation Qa Tester/Techni jadon ID = [id number] for Leona Arias POCT-GLUCOSE [id number] 12:02:07 Test Item Value Reference Range Interpretation Comments POC-GLUCOSE METER 264 mg/dL 70-110 H : TESTED A T [facility] 6720 ([employer]) (test code = [facility], 1538) 41948: Automation Qa Tester/Techni jadon ID = [id number] for Leona Arias CT, CTA AAA, W/ ROSAURA.EXT.[id number] 10:25:00Bilateral lower extremity runoffMAYERS [facility]Name: KIERSTEN SMITH : 1975 Sex: MAddendum BeginsREPORT STATUS:A ADDENDUM: Study reviewed by radiology.Agree with the nonvascular findings as described below. Signed: Lisandro Harris MDReport Verified Date/Time: 04/14/2022 10:25:29 Reading Location: [facility] P048 Angio Body Reading RoomAddendum EndsFINAL REPORT CT angiography of the abdominal aorta with runoff, 12-Apr-22 INDICATION: This is a 46 year old male with diagnosis of limb ischemia presents for assessment. TECHNIQUE: Spiral acquisition before and during intravenous contrast administration using a Siemens multidetectorCT scanner. Images were obtained before and during the dynamic passage of intravenous contrast material. Multi-planar 3-D volume-rendering reconstruction was performed using an independent workstationinteractively by the interpreting physician as well as the 3-D specialist for optimal visualisation of the abdominal aorta, pelvic arteries, and its peripheral branches. Please refer to the contrast sheet scanned in the EPIC system for the amount and route of contrast given. This exam was performed according to our departmental dose-optimisation programme, which includes automated exposure control, adjustment of the mA and/or kV according to patient size and/or use of iterative reconstruction technique. Dose modulation, iterative reconstruction, and/or weight based adjustment of the mA/kV was utiliz ed to reduce the radiation dose to as low as reasonably achievable. FINDINGS: VASCULAR: The abdominal aorta is normal in course, calibre and contour. Scattered calcification is seen. No ectasia or aneurysmal dilation is identified. There is no evidence of acute aortic pathology, specifically, there is no dissection, intramural hematoma, or contained rupture. Quantitative dimensions of the abdominalaorta are as follows: 2.4 cm at the mesenteric segment; 2.0 cm at the renal segment,; and 1.7 cm at the aortic bifurcation. Mild stenosis is seen at the takeoff of the coeliac axis, however, there is a severe stenosis seen in the proximal SMA for length of approximately 1.3 cm and remainder of theSMA is widely patent. The SAMEERA is widely patent. There are single left and right renal arteries identified. The right renal artery has nonobstructive calcification identified and is widely patent. Noncalcific atherosclerosis is identified in the proximal left renal artery, with a moderate to significant focal stenosis identified proximally for length of approximately 1 cm. Remainder of the left renal artery is widely patent. In the left lower extremity, the left common iliac, left external iliac, andthe left common femoral artery is widely patent. The left SFA has mild noncalcific atherosclerosis identified, at image 258, with mild stenosis identified. At the takeoff of the left profunda system, some eccentric noncalcific atherosclerosis is seen, with a moderate significant focal lesion identified proximally, at image 248. Remainder of the left SFA is patent with no obstructive lesion identified. However, at image 433 at the juncture of the distal left SFA/proximal left popliteal artery, it isoccluded, and the occlusion involves the entire left popliteal artery, and the length of the occlusion is 20 cm. Acuity cannot be commented upon. Correlate with clinical history. In the left lower extremity, the left tibioperoneal still had diffuse calcific and noncalcific atherosclerosis identified. The left anterior tibial artery is widely patent well seen down to level of the ankle and the dorsalis pedis artery has some disease identified. The left peroneal artery is patent. The left posterior tibial artery is patent and the plantar arch is seen distally. In the right, the right common iliac, right external iliac and the right common femoral arteries are widely patent. The right SFA is essentially is widely patent. No atherosclerosis is seen. The right profunda system is unremarkable. The right popliteal artery is also widely patent with some nonobstructive mild calcification identified. However, image 437 most likely there is motion artefact present due to patient movement. At the time of examination, there is no mention which leg is symptomatic. The right tibioperoneal trunk is widely patent. The right anterior tibial artery is widely patent and the dorsalis pedis artery is well seen. The right peroneal artery is patent, well seen down to level of the ankle. The right posterior tibial artery is also widely patent and the plantar arch is seen distally. NON-VASCULAR: The lung bases unremarkable. No pleural effusion is seen. In the abdomen, the liver and spleen appears unremarkable. The liver edge is smooth. No abnormal enhancing structure is identified. The adrenal gland is unremarkable. The pancreas is unremarkable. No acute renal pathology seen and no hydronephrosis or perirenal fluid collection is identified. Tiny nonobstructive renal stone is identified in the left kidney at image 33 measuring 1 mm in diameter. A parapelvic renal cyst is identified that is simple in nature withno enhancement after contrast demonstration. Bowel is incompletely assessed by CT angiography as enteric contrast is not given. No obvious bowel dilation is identified. Scattered colonic diverticulum is seen with no inflammatory changes present. The appendix appears unremarkable. The prostate gland ismildly prominent with punctate calcification identified. The bladder appears unremarkable. No free air or free fluid is identified abdomen pelvis and no significant retroperitoneal adenopathy is identified. In the bony windows, no acute bony pathology is seen. Minimal degenerative changes is noted. Screws identified in the distal right femur, and upper right tibia. Correlate with appropriate operative report. CONCLUSIONS: 1. The abdominal aorta is normal in course, calibre and contour. Scattered calcification is seen. There is no evidence of acute aortic pathology, specifically, there is no dissection, intramural hematoma, or contained rupture. Quantitative dimension of the abdominal aorta are asnoted. 2. No inflow disease, bilaterally. 3. The left SFA is unremarkable. Significant stenosis is seen at the takeoff of the left profunda system. At the juncture of the left SFA involving the entire left popliteal artery for length of approximately 19 cm, occlusion is present. The left tibioperonealis reconstitution by surrounding collaterals, however, there is also moderate diffuse disease identified. Essentially three-vessel runoff in the left lower extremity. 4. The right SFA is unremarkable. Note, in the proximal right popliteal artery, image 437, there is likely patient motion artefact identified at this segment is not well appreciated. Remainder of the right popliteal artery is unremarkable. No clinical information is provided which leg is symptomatic. In the request form, it is mentioned that there is acute deep vein thrombosis in the LEFT popliteal - duplex ultrasound scan is the optimal modality for evaluation for DVT. Venous structures will not be well evaluated by CTA, nevertheless, in this examination, the LEFT POPLITEAL ARTERY is not filled by contrast indicating occlusion. However, acuity cannot be commented upon; correlate with clinical history. As described above, majority of the right popliteal artery is unremarkable, except for one short segment, likely due to motion artefact, is not well assessed. Three-vessel runoff in the right lower extremity. 5. Other findings as described above. 6. An addendum will be dictated by the Informatics Pharmacist Radiologist regarding the nonvascular findings. THE REPORT WILL ONLY BE CONSIDERED COMPLETE AFTER THE ADDENDUM HAS BEEN DICTATED. Signed: Dwight Almeida MDReport Verified Date/Time: 04/13/2022 08:30:45 HEMOGLOBIN [id number] 09:32:15 Test Item Value Reference Range Interpretation Comments HEMOGLOBIN A1C 8.3 % See_Comment H [Automated m essage] ELECTROPHORESIS (BEAKER) The system which (test code = 3811) generated this result transmitted ref erence range: <=5.6%. The reference range was not used to int erpret this result as normal/abnormal . "The A1c is measured using a [facility]-certified method. HbA1c value equal to or greater than 6.5% as thediagnosis cutoff for diabetes. An HbA1c value of 5.7- 6.4% indicates increased risk for diabetes (prediabetes)."Automation Qa Tester ID - ADM [id number] 03:37:17 Test Item Value Reference Range Interpretation Comments MAGNESIUM (BEAKER) 1.9 mg/dL 1.6-2.6 Specimen slightly (test code = 627) hemolyzed Automation Qa Tester ID - MYRNA GBASIC METABOLIC [id number] 03:37:17 Test Item Value Reference Range Interpretation Comments SODIUM (BEAKER) 137 meq/L 136-145 (test code = 381) POTASSIUM (BEAKER) 3.9 meq/L 3.5-5.1 Specimen slightly (test code = 379) hemolyzed CHLORIDE (BEAKER) 104 meq/L 98-107 (test code = 382) CO2 (BEAKER) (test 23 meq/L 22-29 code = 355) BLOOD UREA NITROGEN 17 mg/dL 7-21 (BEAKER) (test code = 354) CREATININE (BEAKER) 0.85 mg/dL 0.57-1.25 Specimen slightly (test code = 358) hemolyzed GLUCOSE RANDOM 224 mg/dL 70-105 H (BEAKER) (test code = 652) CALCIUM (BEAKER) 9.5 mg/dL 8.4-10.2 (test code = 697) EGFR (BEAKER) (test 96 mL/min/1.73 ESTIMA FAY GFR IS code = 1092) sq m NOT ACCURATE CREATININE CLEARANCE IN PREDICTING GLOMERULAR FILTRATION RATE . ESTIMATED GFR I S NOT APPLICABLE FOR DIALYSIS PATIEN TS. Automation Qa Tester ID - MYRNA [id number] 03:04:30 Test Item Value Reference Range Interpretation Comments PARTIAL THROMBOPLASTIN TIME 67.6 seconds 22.5-36.0 H (BEAKER) (test code = 760) POCT-GLUCOSE [id number] 22:06:08 Test Item Value Reference Range Interpretation Comments POC-GLUCOSE METER 204 mg/dL 70-110 H : TESTED A T [facility] ([facility]) (test code = [facility], 1538) 78885: Automation Qa Tester/Techni jadon ID = [id number] for DAVID CLINTON POCT-GLUCOSE [id number] 21:13:52 Test Item Value Reference Range Interpretation Comments POC-GLUCOSE METER 202 mg/dL 70-110 H : TESTED A T [facility] 6720 ([facility]) (test code = [facility], 1538) 09845: Automation Qa Tester/Techni jadon ID = [id number] for Scotty Stonea [id number] 19:51:16 Test Item Value Reference Range Interpretation Comments PARTIAL THROMBOPLASTIN TIME 62.7 seconds 22.5-36.0 H ([facility]) (test code = 760) POCT-GLUCOSE [id number] 17:18:10 Test Item Value Reference Range Interpretation Comments POC-GLUCOSE METER 243 mg/dL 70-110 H : TESTED A T [facility] ([facility]) (test code = [facility], 1538) 03258: Automation Qa Tester/Techni jadon ID = [id number] for LAUREEN JUÁREZA [id number] 13:00:22 Test Item Value Reference Range Interpretation Comments PARTIAL THROMBOPLASTIN TIME 45.6 seconds 22.5-36.0 H ([facility]) (test code = 760) HEMOGLOBIN [id number] 10:48:37 Test Item Value Reference Range Interpretation Comments HEMOGLOBIN A1C 8.2 % See_Comment H [Automated m essage] ELECTROPHORESIS ([facility]) The system which (test code = 3811) generated this result transmitted ref erence range: <=5.6%. The reference range was not used to int erpret this result as normal/abnormal . "The A1c is measured using a [facility]-certified method. HbA1c value equal to or greater than 6.5% as thediagnosis cutoff for diabetes. An HbA1c value of 5.7- 6.4% indicates increased risk for diabetes (prediabetes)."Automation Qa Tester ID - ADMPOCT- GLUCOSE [id number] 08:05:57 Test Item Value Reference Range Interpretation Comments POC-GLUCOSE METER 206 mg/dL 70-110 H : TESTED A T [facility] (BEAKER) (test code = [place], 1538) 00151: Automation Qa Tester/Techni jadon ID = [id number] for CATHY JUÁREZ BASIC METABOLIC [id number] 06:10:31 Test Item Value Reference Range Interpretation Comments SODIUM (BEAKER) 138 meq/L 136-145 (test code = 381) POTASSIUM (BEAKER) 3.8 meq/L 3.5-5.1 (test code = 379) CHLORIDE (BEAKER) 105 meq/L 98-107 (test code = 382) CO2 (BEAKER) (test 25 meq/L 22-29 code = 355) BLOOD UREA NITROGEN 10 mg/dL 7-21 (BEAKER) (test code = 354) CREATININE (BEAKER) 0.84 mg/dL 0.57-1.25 (test code = 358) GLUCOSE RANDOM 184 mg/dL 70-105 H (BEAKER) (test code = 652) CALCIUM (BEAKER) 9.3 mg/dL 8.4-10.2 (test code = 697) EGFR (BEAKER) (test 98 mL/min/1.73 ESTIMA FAY GFR IS code = 1092) sq m NOT ACCURATE CREATININE CLEARANCE IN PREDICTING GLOMERULAR FILTRATION RATE . ESTIMATED GFR I S NOT APPLICABLE FOR DIALYSIS PATIEN TS. Automation Qa Tester ID - AMI [id number] 05:48:09 Test Item Value Reference Range Interpretation Comments PARTIAL THROMBOPLASTIN TIME 64.0 seconds 22.5-36.0 H (BEAKER) (test code = 760) PROTHROMBIN TIME/[id number] 05:46:45 Test Item Value Reference Range Interpretation Comments PROTIME (BEAKER) 13.6 seconds 11.9-14.2 (test code = 759) INR (BEAKER) (test 1.06 See_Comment [Automat ed message] code = 370) The system [employer] generated this result transmitted ref erence range: <=5.90. The reference range was not used to int erpret this result as normal/abnormal . RECOMMENDED COUMADIN/WARFARIN INR THERAPY RANGESSTANDARD DOSE: 2.0 - 3.0 Includes: PROPHYLAXIS forvenous thrombosis, systemic embolization; TREATMENT for venous thrombosis and/or pulmonary embolus.HIGH RISK: Target INR is 2.5-3.5 for patients with mechanical heart valves.CBC W/PLT COUNT & AUTO DIFFERENTIAL 2022-04-13 05:25:18 Test Item Value Reference Range Interpretation Comments WHITE BLOOD CELL COUNT (BEAKER) 5.9 K/ L 3.5-10.5 (test code = 775) RED BLOOD CELL COUNT (BEAKER) 5.12 M/ L 4.63-6.08 (test code = 761) HEMOGLOBIN (BEAKER) (test code = 15.1 GM/DL 13.7-17.5 410) HEMATOCRIT (BEAKER) (test code = 46.2 % 40.1-51.0 411) MEAN CORPUSCULAR VOLUME (BEAKER) 90.2 fL 79.0-92.2 (test code = 753) MEAN CORPUSCULAR HEMOGLOBIN 29.5 pg 25.7-32.2 (BEAKER) (test code = 751) MEAN CORPUSCULAR HEMOGLOBIN CONC 32.7 GM/DL 32.3-36.5 (BEAKER) (test code = 752) RED CELL DISTRIBUTION WIDTH 12.9 % 11.6-14.4 (BEAKER) (test code = 412) PLATELET COUNT (BEAKER) (test 152 K/CU MM 150-450 code = 756) MEAN PLATELET VOLUME (BEAKER) 9.1 fL 9.4-12.4 L (test code = 754) NUCLEATED RED BLOOD CELLS 0 /100 WBC 0-0 (BEAKER) (test code = 413) NEUTROPHILS RELATIVE PERCENT 53 % (BEAKER) (test code = 429) LYMPHOCYTES RELATIVE PERCENT 35 % (BEAKER) (test code = 430) MONOCYTES RELATIVE PERCENT 8 % (BEAKER) (test code = 431) EOSINOPHILS RELATIVE PERCENT 3 % (BEAKER) (test code = 432) BASOPHILS RELATIVE PERCENT 1 % (BEAKER) (test code = 437) NEUTROPHILS ABSOLUTE COUNT 3.17 K/ L 1.78-5.38 (BEAKER) (test code = 670) LYMPHOCYTES ABSOLUTE COUNT 2.05 K/ L 1.32-3.57 (BEAKER) (test code = 414) MONOCYTES ABSOLUTE COUNT (BEAKER) 0.49 K/ L 0.30-0.82 (test code = 415) EOSINOPHILS ABSOLUTE COUNT 0.17 K/ L 0.04-0.54 (BEAKER) (test code = 416) BASOPHILS ABSOLUTE COUNT (BEAKER) 0.05 K/ L 0.01-0.08 (test code = 417) IMMATURE GRANULOCYTES-RELATIVE 0 % 0-1 PERCENT (BEAKER) (test code = 2801) [id number] 21:13:21 Test Item Value Reference Range Interpretation Comments PARTIAL THROMBOPLASTIN TIME 48.6 seconds 22.5-36.0 H (BEAKER) (test code = 760) POCT-GLUCOSE [id number] 21:11:37 Test Item Value Reference Range Interpretation Comments POC-GLUCOSE METER 219 mg/dL 70-110 H : TESTED A T [facility] 6720 (BEAKER) (test code = [facility], 1538) [id number]: Automation Qa Tester/Techni jadon ID = [id number] for ENIO CALVILLO POCT-GLUCOSE [id number] 16:09:00 Test Item Value Reference Range Interpretation Comments POC-GLUCOSE METER 188 mg/dL 70-110 H : TESTED A T [facility] 6720 (BEAKER) (test code = [facility], 1538) [id number]: Automation Qa Tester/Techni jadon ID = [id number] for KENDRICK SLAUGHTER [id number] 14:01:40 Test Item Value Reference Range Interpretation Comments PARTIAL THROMBOPLASTIN TIME 48.0 seconds 22.5-36.0 H (BEAKER) (test code = 760) POCT-GLUCOSE [id number] 13:05:22 Test Item Value Reference Range Interpretation Comments POC-GLUCOSE METER 201 mg/dL 70-110 H : TESTED A T [facility] 6720 (BEAKER) (test code = [facility], 1538) [id number]: Automation Qa Tester/Techni jadon ID = [id number] for JUNIOR SLAUGHTERYL POCT-GLUCOSE [id number] 12:16:32 Test Item Value Reference Range Interpretation Comments POC-GLUCOSE METER 171 mg/dL 70-110 H : TESTED A T [facility] 6720 (BEAKER) (test code = [facility], 1538) [id number]: Automation Qa Tester/Techni jadon ID = [id number] for KASANDRA, KENDRICK POCT-GLUCOSE [id number] 10:21:18 Test Item Value Reference Range Interpretation Comments POC-GLUCOSE METER 170 mg/dL 70-110 H : TESTED A T [facility] 6720 ([place]) (test code = [facility], 1538) [id number]: Automation Qa Tester/Techni jadon ID = [id number] for KENDRICK SLAUGHTER SARS-COV2/RT-PCR ([facility])2022-04-12 09:39:34 Test Item Value Reference Range Interpretation Comments SARS-COV2/RT-PCR Negative Negative The SARS-Co V-2 target (test code = nucleic acids a re not [id number]) detected in thi s specimen. Negative result s do not preclude SARS-C oV-2 infection and s hould not be used as the denice e basis for patient managem ent decisions. Nega tive results must be combine d with clinical observ ations, patient history , and epidemiological information. A false negativ e result may occur if a spec imen is improperly kalpesh ected, transported or handled. This SARS CoV-2 test is a rapid, real-sheri e RT-PCR test intended for th e qualitative detection of nu cleic acid from SARS-CoV-2 in a nasopharyngeal swab specimen collected from individuals suspected of CO VID-19 by their healthcar e provider. This test has been authorized by FDA under an EUA for use by authorized laboratories. This test is only authorized for the duration of the declaration that circumstances exist justifying the authorization of emergency use of in vitro diagnostic tests for detection and/or diagnosis of COVID-19 under Section 564(b)(1) of the Federal Food, Drug and Cosmetic Act, 21 U.S.C. 360bbb- 3(b)(1), unless the authorization is terminated or revoked sooner. Fact Sheet for Healthcare Providers: https://www.[employer]/Documents/Xpert%20Xpress%20SARS%20CoV-2/Fact%20Sheets/124-6815%20SARS-COV -2%20HEALTHCARE%20PROVIDERS%20FACT%20SHEET.pdf Fact Sheet for Healthcare Patients: https://www.[employer]/Documents/Xpert %20Xpress%20SARS%20CoV-2/Fact%20Sheets/491-1601%60ZJXA-LZV-0%20PATIENT%20FACT%20 SHEET.[id number] 06:58:29 Test Item Value Reference Range Interpretation Comments MAGNESIUM (BEAKER) (test code = 1.9 mg/dL 1.6-2.6 627) Automation Qa Tester ID Cesar MUELLER LHEPATIC FUNCTION [id number] 06:58:29 Test Item Value Reference Range Interpretation Comments TOTAL PROTEIN (BEAKER) (test code = 6.6 gm/dL 6.0-8.3 770) ALBUMIN (BEAKER) (test code = 1145) 3.8 g/dL 3.5-5.0 BILIRUBIN TOTAL (BEAKER) (test code 0.7 mg/dL 0.2-1.2 = 377) BILIRUBIN DIRECT (BEAKER) (test 0.3 mg/dL 0.1-0.5 code = 706) ALKALINE PHOSPHATASE (BEAKER) (test 73 U/L 40-150 code = 346) AST (SGOT) (BEAKER) (test code = 19 U/L 5-34 353) ALT (SGPT) (BEAKER) (test code = 17 U/L 6-55 347) Automation Qa Tester ID - AMI LBASIC METABOLIC [id number] 06:58:28 Test Item Value Reference Range Interpretation Comments SODIUM (BEAKER) 137 meq/L 136-145 (test code = 381) POTASSIUM (BEAKER) 3.8 meq/L 3.5-5.1 (test code = 379) CHLORIDE (BEAKER) 104 meq/L 98-107 (test code = 382) CO2 (BEAKER) (test 25 meq/L 22-29 code = 355) BLOOD UREA NITROGEN 15 mg/dL 7-21 (BEAKER) (test code = 354) CREATININE (BEAKER) 0.77 mg/dL 0.57-1.25 (test code = 358) GLUCOSE RANDOM 199 mg/dL 70-105 H (BEAKER) (test code = 652) CALCIUM (BEAKER) 9.2 mg/dL 8.4-10.2 (test code = 697) EGFR (BEAKER) (test 108 mL/min/1.73 ESTIM ATED GFR IS code = 1092) sq m NOT ACCURATE CREATININE CLEARANCE IN PREDICTING GLOMERULAR FILTRATION RATE . ESTIMATED GFR I S NOT APPLICABLE FOR DIALYSIS PATIEN TS. Automation Qa Tester ID - AMI LCBC (HEMOGRAM ONLY)2022-04-12 06:46:41 Test Item Value Reference Range Interpretation Comments WHITE BLOOD CELL COUNT (BEAKER) 6.9 K/ L 3.5-10.5 (test code = 775) RED BLOOD CELL COUNT (BEAKER) 5.20 M/ L 4.63-6.08 (test code = 761) HEMOGLOBIN (BEAKER) (test code = 15.6 GM/DL 13.7-17.5 410) HEMATOCRIT (BEAKER) (test code = 46.1 % 40.1-51.0 411) MEAN CORPUSCULAR VOLUME (BEAKER) 88.7 fL 79.0-92.2 (test code = 753) MEAN CORPUSCULAR HEMOGLOBIN 30.0 pg 25.7-32.2 (BEAKER) (test code = 751) MEAN CORPUSCULAR HEMOGLOBIN CONC 33.8 GM/DL 32.3-36.5 (BEAKER) (test code = 752) RED CELL DISTRIBUTION WIDTH 13.0 % 11.6-14.4 (BEAKER) (test code = 412) PLATELET COUNT (BEAKER) (test 170 K/CU MM 150-450 code = 756) MEAN PLATELET VOLUME (BEAKER) 9.4 fL 9.4-12.4 (test code = 754) NUCLEATED RED BLOOD CELLS 0 /100 WBC 0-0 (BEAKER) (test code = 413) [id number] 06:33:40 Test Item Value Reference Range Interpretation Comments PARTIAL THROMBOPLASTIN TIME 56.8 seconds 22.5-36.0 H (BEAKER) (test code = 760) PROTHROMBIN TIME/[id number] 06:32:35 Test Item Value Reference Range Interpretation Comments PROTIME (BEAKER) 13.7 seconds 11.9-14.2 (test code = 759) INR (BEAKER) (test 1.06 See_Comment [Automat ed message] code = 370) The system [employer] generated this result transmitted ref erence range: <=5.90. The reference range was not used to int erpret this result as normal/abnormal . RECOMMENDED COUMADIN/WARFARIN INR THERAPY RANGESSTANDARD DOSE: 2.0 - 3.0 Includes: PROPHYLAXIS forvenous thrombosis, systemic embolization; TREATMENT for venous thrombosis and/or pulmonary embolus.HIGH RISK: Target INR is 2.5-3.5 for patients with mechanical heart valves.
== END 2022-05-09 04:15 | disposition home or self-care (01) ==
LOC: ER 22:40
DX: Z45.2 Encounter for adjustment and management of vascular access device (principal); E11.9 Type 2 diabetes mellitus without complications; I10 Essential (primary) hypertension; Z88.8 Allergy status to other drugs, medicaments and biological substances
CPT/HCPCS: 99281

== ENCOUNTER 2025-08-16 11:09 | Emergency (ER) | payer BC ==
[2025-08-16 12:27] LABS: Urine Microscopic Reflex YN NO UMIC
[2025-08-16] MEDS ORDERED: DIAZEPAM 10 MG/2 ML INJ SYRINGE ONE (12:39)
[2025-08-16] MEDS ORDERED: KETOROLAC 30 MG/ML INJ ONE (12:40)
[2025-08-16] MEDS ORDERED: HYDROCODONE/APAP 5/325 MG TAB ONE (12:40)
--- NOTE | 2025-08-16 13:31 | RAD REPORT ---
EXAMINATION: XR Lumbar Spine 3 Views CLINICAL INDICATION: Male, 49 years old. [facility] Bed Name: [id number] TECHNIQUE: AP, lateral, focused lateral lumbosacral views of the lumbar spine were obtained. COMPARISON: No prior exam. FINDINGS: For purposes of this dictation, it is assumed that there are 5 lumbar type vertebral bodies. ALIGNMENT: There is normal alignment of the lumbar spine. BONES: Vertebral bodies are normal in height. No aggressive osseous lesions. Moderate degenerative ch anges predominantly along the L4-5 facet articulations. DISCS: Disc heights are maintained. IMPRESSION: No acute lumbar spine abnormality. Mild to moderate degenerative changes as above.
--- NOTE | 2025-08-16 13:56 | ER ---
Nurse's Notes [facility] Name: Ramiro Naylor Age: 49 yrs Sex: Male : 1975 Arrival Date: 08/16/2025 Time: 11:09 Bed 10 Private MD: Diagnosis: Low back pain Presentation: 08/16 11:42 Chief complaint: Patient states: lower right side back pain for one month/ seen at urgent care 2 weeks ago and just received pain medications. Coronavirus screen: Client denies travel out of the [place] in the last 14 days. At this time, the client does not indicate any symptoms associated with coronavirus-19. Ebola Screen: No symptoms or risks identified at this time. 11:42 Method Of Arrival: Ambulatory iw 11:50 Initial Sepsis Screen: Does the patient meet any 2 criteria? No. Patient's initial iw sepsis screen is negative. Initial Sepsis Screen: Does the patient have a suspected source of infection? No. Patient's initial sepsis screen is negative. Risk Assessment: Do you want to hurt yourself or someone else? Patient reports no desire to harm self or others. 11:50 Acuity: CY 4 iw 11:51 Onset of symptoms was June 2025. iw Historical: - Allergies: 11:46 No Known Allergies; iw - PMHx: 11:46 diabetes mellitus; Hypertensive disorder; seven syndrome; iw - Immunization history:: Adult Immunizations up to date. - Infectious Disease History:: Denies. - Social history:: Smoking status: unknown. Screenin:30 [facility] ED Fall Risk Assessment (Adult) History of falling in the last 3 months, rg5 including since admission No falls in past 3 months (0 pts) Confusion or Disorientation No (0 pts) Intoxicated or Sedated No (0 pts) Impaired Gait No (0 pts) Mobility Assist Device Used No (0 pt) Altered Elimination No (0 pt) Score/Fall Risk Level 0 - 2 = Low Risk Oriented to surroundings, Maintained a safe environment. Abuse screen: Denies threats or abuse. Nutritional screening: No deficits noted. Assessment: 13:30 General: Appears uncomfortable, Behavior is calm, cooperative, appropriate for age. rg5 Pain: Complains of pain in right low back Quality of pain is described as aching. Neuro: Level of Consciousness is awake, alert, obeys commands, Oriented to person, place, time, situation. Cardiovascular: Denies chest pain, Patient's skin is warm and dry. Respiratory: Airway is patent Trachea midline Respiratory effort is even, unlabored, Respiratory pattern is regular, symmetrical. GI: Abdomen is round non-distended. : No signs and/or symptoms were reported regarding the genitourinary system. EENT: No signs and/or symptoms were reported regarding the EENT system. Derm: Skin is intact, Skin is dry, Skin is normal. Musculoskeletal: Circulation, motion, and sensation intact. Range of motion: intact in all extremities. 14:10 Reassessment: Patient and/or family updated on plan of care and expected duration. Pain rg5 level reassessed. Patient is alert, oriented x 3, equal unlabored respirations, skin warm/dry/pink. Patient states feeling better. Patient states symptoms have improved. Vital Signs: 11:42 BP 142 / 87; Pulse 73; Resp 18; Temp 98.7; Pulse Ox 98% ; Weight 110 kg; Height 6 ft. 2 iw in. ; 14:00 BP 138 / 80; Pulse 75; Resp 18; Pulse Ox 100% ; rg5 11:42 Body Mass Index 31.14 (110.00 kg, 187.96 cm) iw ED Course: 11:12 Patient arrived in ED. im 11:18 Joo Ellington FNP-C is [facility]. dr5 11:18 Fernando Vale MD is Attending Physician. dr5 11:51 Triage completed. iw 12:04 Urine collected: clean catch specimen, sent to lab. rv1 12:32 Randolph Queen, RN is Primary Nurse. rg5 12:45 Lumbar Spine (3 Views) XRAY In Process Unspecified. EDMS 13:30 No provider procedures requiring assistance completed. Patient did not have IV access rg5 during this emergency room visit. 13:30 Patient has correct armband on for positive identification. Bed in low position. Call rg5 light in reach. Side rails up X 1. Door closed. Noise minimized. Pillow given. Administered Medications: 12:50 Drug: Diazepam IM 5 mg IM once Route: IM; Site: right gluteus; rg5 14:09 Follow up: Response: No adverse reaction rg5 12:51 Drug: Ketorolac IM 30 mg IM once Route: IM; Site: right gluteus; rg5 14:09 Follow up: Response: No adverse reaction; Pain is decreased rg5 12:51 Drug: HYDROcodone-acetaminophen PO 5 mg-325 mg 2 tabs PO once Route: PO; rg5 14:09 Follow up: Response: No adverse reaction; Pain is decreased rg5 Medication: 13:30 VIS not applicable for this client. rg5 Outcome: 13:55 Discharge ordered by . gwyn 14:14 Discharged to home ambulatory, rg5 14:14 Condition: stable rg5 14:14 Discharge instructions given to patient, Instructed on discharge instructions, Demonstrated understanding of instructions, Prescriptions given X 3, 14:15 Patient left the ED. rg5 Signatures: Dispatcher [employer] EDNan Stubbs, RN Jing Dalal rv1 Merna Castellanos Rommel RN RN rg5 Joo Ellington, SYNTHETIC CLOTH BINDING CUTTER-C SYNTHETIC CLOTH BINDING CUTTER-Cdr5
--- NOTE | 2025-08-16 13:56 | EDPHYS ---
Physician Documentation [facility] Name: Ramiro Elder Age: 49 yrs Sex: Male : 1975 Arrival Date: 08/16/2025 Time: 11:09 Bed 10 Private MD: VIRGILIO Physician Fernando Vale HPI: 08/16 16:18 This 49 yrs old Male presents to ER via Ambulatory with complaints of Low dr5 Back Pain. 16:18 The patient presents with pain that is acute, with no known mechanism of injury. Onset: dr5 The symptoms/episode began/occurred acutely. Patient is a 49-year-old male with history of diabetes, hypertension coming in with right lower back pain radiating down bottom of right upper leg that started a month ago. Patient reports that he was lifting something heavy and injured back. Patient denies numbness or tingling to lower legs, bowel or bladder incontinence, fever, or trauma.. Historical: - Allergies: 11:46 No Known Allergies; iw - PMHx: 11:46 diabetes mellitus; Hypertensive disorder; seven syndrome; iw - Immunization history:: Adult Immunizations up to date. - Infectious Disease History:: Denies. - Social history:: Smoking status: unknown. ROS: 16:18 Constitutional: as per hpi dr5 Exam: 16:18 Constitutional: This is a well developed, well nourished patient who is awake, alert, dr5 and in no acute distress. Head/Face: Normocephalic, atraumatic. Eyes: Pupils equal round and reactive to light, extra-ocular motions intact. Lids and lashes normal. Conjunctiva and sclera are non-icteric and not injected. Cornea within normal limits. Periorbital areas with no swelling, redness, or edema. ENT: Nares patent. No nasal discharge, no septal abnormalities noted. Tympanic membranes are normal and external auditory canals are clear. Oropharynx with no redness, swelling, or masses, exudates, or evidence of obstruction, uvula midline. Mucous membranes moist. Chest/axilla: Normal chest wall appearance and motion. Nontender with no deformity. No lesions are appreciated. Respiratory: Lungs have equal breath sounds bilaterally, clear to auscultation. No rales, rhonchi or wheezes noted. No increased work of breathing, no retractions or nasal flaring. Abdomen/GI: Soft, non-tender, non-distended Back: No spinal tenderness. No costovertebral tenderness. Full range of motion. Straight leg raise is positive with elicited pain of right lower back. Skin: Warm, dry with normal turgor. Normal color with no rashes, no lesions, and no evidence of cellulitis. MS/ Extremity: Pulses equal, no cyanosis. Neurovascular intact. Full, normal range of motion. Neuro: Awake and alert, GCS 15, oriented to person, place, time, and situation. Cranial nerves II-XII grossly intact. Motor strength 5/5 in all extremities. Sensory grossly intact. Cerebellar exam normal. Normal gait. Vital Signs: 11:42 BP 142 / 87; Pulse 73; Resp 18; Temp 98.7; Pulse Ox 98% ; Weight 110 kg; Height 6 ft. 2 iw in. ; 14:00 BP 138 / 80; Pulse 75; Resp 18; Pulse Ox 100% ; rg5 11:42 Body Mass Index 31.14 (110.00 kg, 187.96 cm) iw MDM: 11:18 Medical Screening Exam initiated dr5 16:18 Differential diagnosis: arthritis, strain, sciatica, UTI. Data reviewed: vital signs, dr5 nurses notes, lab test result(s), urinalysis, radiologic studies, plain films. Consideration of Admission/Observation Escalation of care including admission/observation considered. Escalation considered if patient found to have back pain red flags concerning for cauda equina such as bowel or bladder incontinence. I considered the following discharge prescriptions or medication management in the emergency department I discussed and recommended Over The Counter medications, Medications were administered in the Emergency Department. See MAR. Independent interpretation of the following test(s) in the Emergency Department X-Ray: My interpretation is Independent interpretation of x-ray does not reveal acute fracture. Care significantly affected by the following chronic conditions: Diabetes, Hypertension. Care significantly affected by the following Social Determinants of Health: Poor access to healthcare and/or lack of insurance, Poor access to transportation, Problems related to employment. Counseling: I had a detailed discussion with the patient and/or guardian regarding the historical points, exam findings, and any diagnostic results supporting the discharge/admit diagnosis, the presence of at least one elevated blood pressure reading (>120/80) during this emergency department visit, lab results, radiology results, the need for outpatient follow up, for definitive care, a family practitioner, to return to the emergency department if symptoms worsen or persist or if there are any questions or concerns that arise at home. Medication response: [place], Toradol, Valium. Response to treatment: the patient's symptoms have resolved after treatment. Special discussion: I discussed with the patient/guardian in detail that at this point there is no indication for admission to the hospital. It is understood, however, that if the symptoms persist or worsen the patient needs to return immediately for re-evaluation. Based on the history and exam findings, there is no indication for further emergent testing or inpatient evaluation. I discussed with the patient/guardian the need to see the orthopedic surgeon for further evaluation of the symptoms. I discussed with the patient/guardian the need to see the primary care provider for further evaluation of the symptoms. ED course: X-ray does not reveal acute abnormality. Urine shows glucose. Recommended patient have strict glucose control. Will give patient medications to help with back pain. Likely sciatic nerve pain. Will have patient follow up with primary care physician. All questions answered. Strict ER precautions given. 08/16 11:56 Order name: UA Rfx Duane Cult if indicated; Complete Time: 12:53 dr5 08/16 11:38 Order name: Lumbar Spine (3 Views) XRAY; Complete Time: 13:54 dr5 Administered Medications: 12:50 Drug: Diazepam IM 5 mg IM once Route: IM; Site: right gluteus; rg5 14:09 Follow up: Response: No adverse reaction rg5 12:51 Drug: Ketorolac IM 30 mg IM once Route: IM; Site: right gluteus; rg5 14:09 Follow up: Response: No adverse reaction; Pain is decreased rg5 12:51 Drug: HYDROcodone-acetaminophen PO 5 mg-325 mg 2 tabs PO once Route: PO; rg5 14:09 Follow up: Response: No adverse reaction; Pain is decreased rg5 Disposition Summary: 08/16/25 13:55 Discharge Ordered Notes: Location: Home dr5 Condition: Stable dr5 Diagnosis - Low back pain dr5 Followup: dr5 - With: Emergency Department - When: As needed - Reason: Worsening of condition Followup: dr5 - With: Private Physician - When: 1 - 2 days - Reason: Recheck today's complaints, Continuance of care, Re-evaluation by your physician Discharge Instructions: - Discharge Summary Sheet dr5 - Acute Back Pain, Adult dr5 Forms: - Medication Reconciliation Form dr5 - Patient Portal Instructions dr5 - Leadership Thank You Letter dr5 Prescriptions: - Anaprox DS 550 mg Oral Tablet - take 1 tablet ORAL route every 12 hours As needed; 20 tablet; Refills: 0, dr5 Product Selection Permitted - Cyclobenzaprine 10 mg Oral Tablet - take 1 tablet ORAL route every 8 hours As needed; 30 tablet; Refills: 0, dr5 Product Selection Permitted - Medrol (August) 4 mg Oral Tablets, Dose Pack - take 1 tablet ORAL route as directed - follow package instructions; 1 packet; dr5 Refills: 0, Product Selection Permitted Signatures: Dispatcher [employer] Nan Capellan, RN Randolph Bullard RN RN rg5 Joo Ellington, DAGOBERTO-C [employer]ER-[facility]5
[2025-08-16 15:38] VITALS: TEMP 98.7
[2025-08-16 15:41] VITALS: BP 138/80; O2SAT 100
== END 2025-08-16 14:15 | disposition home or self-care (01) ==
LOC: ER 11:09
DX: M54.50 Low back pain, unspecified (principal)
CPT/HCPCS: 81003; 72100; 96372; 99284; J1885; J3360